=== PATIENT | male | born 1985 | race Hispanic/Latino ===

== ENCOUNTER 2019-02-08 14:51 | Inpatient (IN) | payer MEDICARE ==
[~2019-02-08] VITALS: Ht 177.8 cm; Wt 75.7 kg
[2019-02-08 15:32] LABS: BASOPHILS % (AUTO) 1.3 % (0.0-5.0); EOSINOPHILS % (AUTO) 11.6 % (0.0-8.0); HEMATOCRIT 28.4 % (42-54); LYMPHOCYTES % (AUTO) 15.2 % (21.0-51.0); MEAN CORPUSCULAR HEMOGLOBIN 30.9 pg (27.0-33.0); MEAN CORPUSCULAR HGB CONC 33.8 g/dL (32.0-36.0); MEAN CORPUSCULAR VOLUME 91.5 fL (79-99); MONOCYTES % (AUTO) 11.7 % (3.0-13.0); NEUTROPHILS % (AUTO) 60.2 % (40.0-77.0); PLATELET COUNT (AUTO) 93 K/uL (130-400); RED CELL DISTRIBUTION WIDTH 15.7 % (11.0-15.5); WHITE BLOOD COUNT (AUTO) 3.4 K/uL (4.8-10.8)
[2019-02-08 15:44] LABS: PARTIAL THROMBOPLASTIN TIME 35.3 SEC (26.3-35.5)
[2019-02-08 15:48] LABS: ALBUMIN 2.1 g/dL (3.5-5.0); BILIRUBIN,TOTAL 0.5 mg/dL (0.2-1.0); POTASSIUM 4.1 mmol/L (3.5-5.1); TOTAL PROTEIN, SERUM 6.4 g/dL (6.0-8.3)
[2019-02-08 15:52] LABS: PLATELET MORPHOLOGY COMMENT DECREASED
[2019-02-08 15:56] LABS: INR 1.09 (0.85-1.15); PROTHROMBIN TIME 11.4 SEC (9.6-11.6)
[2019-02-08] MEDS ORDERED: HYDRALAZINE HCL 20 MG/ML VIAL IV PRN (17:15)
[2019-02-08] MEDS ORDERED: ONDANSETRON HCL 4 MG/2 ML VIAL IV PRN (17:15)
[2019-02-08] MEDS ORDERED: ACETAMINOPHEN 325 MG TAB PO PRN ×2 (17:15)
[2019-02-08] MEDS ORDERED: LACTULOSE 20 GM/30 ML UDCUP PO PRN (17:15)
[2019-02-08] MEDS ORDERED: SODIUM CHLORIDE 0.9% 1000ML 2,000 ML IV ONE (18:49)
[2019-02-08 20:33] LABS: APPEARANCE,URINE Clear (CLEAR); BILIRUBIN,URINE Negative (NEGATIVE); COLOR,URINE Yellow (YELLOW); GLUCOSE, URINE (UA) Negative (NEGATIVE); KETONES,URINE Negative (NEGATIVE); LEUKOCYTE ESTERASE ,URINE Trace (NEGATIVE); NITRATE,URINE Negative (NEGATIVE); OCCULT BLOOD,URINE Nonhemolyzed Trace (NEGATIVE); PROTEIN,URINE 300 mg/dL (NEGATIVE)
[2019-02-08 20:41] LABS: AMPHET/METH SCREEN,URINE NEGATIVE (NEGATIVE); BARBITURATE SCREEN, URINE NEGATIVE (NEGATIVE); BENZODIAZEPINES SCREEN,URINE NEGATIVE (NEGATIVE); CANNABINOID SCREEN,URINE POSITIVE (NEGATIVE); COCAINE SCREEN,URINE NEGATIVE (NEGATIVE); OPIATE SCREEN,URINE NEGATIVE (NEGATIVE); PHENCYCLIDINE SCREEN,URINE NEGATIVE (NEGATIVE)
[2019-02-08] MEDS ORDERED: ACETAMINOPHEN 325 MG TAB ONE (20:43)
[2019-02-08] MEDS ORDERED: HEPARIN SODIUM 5000UNIT/ML 1ML VIAL ONE (20:45)
[2019-02-08 20:47] LABS: BACTERIA,URINE Rare /HPF (None Seen); RBC,URINE 0-1 /HPF (0-1); SQUAMOUS EPITHELIAL CELL,UR Rare /HPF (0-2)
[2019-02-08 20:47] LABS: HEMOGLOBIN A1C 5.8 % (4.0-6.0)
[2019-02-08] MEDS ORDERED: HEPARIN SODIUM 5000UNIT/ML 1ML VIAL SQ SCH (21:00)
--- NOTE | 2019-02-08 22:30 | NUR ---
ER ADMIT Admitted from Er,post dialysis treatment.Vital signs,weight taken. and baby went home,advised them children are not allowed to stay overnight as per policy.Security and Gas Check Pad Maker aware.
[2019-02-08] MEDS: MORPHINE SULFATE 2 MG/ML 1ML SYG IV PRN (23:36)
[2019-02-08 23:45] VITALS: BP 154/80
[2019-02-09 04:00] VITALS: BP 126/68
[2019-02-09] MEDS: MORPHINE SULFATE 2 MG/ML 1ML SYG IV PRN ×4 (05:02→20:00)
[2019-02-09 05:25] LABS: BASOPHILS % (AUTO) 1.5 % (0.0-5.0); EOSINOPHILS % (AUTO) 9.1 % (0.0-8.0); HEMATOCRIT 25.6 % (42-54); LYMPHOCYTES % (AUTO) 23.4 % (21.0-51.0); MEAN CORPUSCULAR HGB CONC 33.2 g/dL (32.0-36.0); MEAN CORPUSCULAR VOLUME 90.3 fL (79-99); MONOCYTES % (AUTO) 12.8 % (3.0-13.0); NEUTROPHILS % (AUTO) 53.2 % (40.0-77.0); PLATELET COUNT (AUTO) 90 K/uL (130-400); RED BLOOD CELL COUNT(AUTO) 2.83 MIL/uL (4.50-6.20); RED CELL DISTRIBUTION WIDTH 15.4 % (11.0-15.5); WHITE BLOOD COUNT (AUTO) 2.6 K/uL (4.8-10.8)
[2019-02-09 05:36] LABS: HEMOGLOBIN A1C 5.9 % (4.0-6.0)
[2019-02-09 06:06] LABS: ALBUMIN 1.9 g/dL (3.5-5.0); BILIRUBIN,DIRECT 0.1 mg/dL (0.0-0.3); BILIRUBIN,TOTAL 0.5 mg/dL (0.2-1.0); MAGNESIUM 1.8 mg/dL (1.80-2.40); PHOSPHORUS 5.4 mg/dL (2.5-4.9); THYROID STIMULATING HORMONE 1.51 uIU/mL (0.36-3.74); TOTAL PROTEIN, SERUM 5.7 g/dL (6.0-8.3)
[2019-02-09 06:22] LABS: EOSINOPHILS % (MANUAL) 12 % (1-6); LYMPHOCYTES % (MANUAL) 24 % (22-44); MAN.DIFF COMMENT-IMPRESSION MANUAL DIFFERENTIAL; MONOCYTES % (MANUAL) 8 % (2-9); PLATELET MORPHOLOGY COMMENT DECREASED; REACTIVE LYMPHOCYTES 2 % (0-0); SEGMENTED NEUTROPHILS % 54 % (40-70)
[2019-02-09 07:00] VITALS: BP 134/69
[2019-02-09] MEDS ORDERED: LEVE500T8 PO (07:48)
[2019-02-09] MEDS ORDERED: LACT10SO9 PO (07:48)
[2019-02-09] MEDS ORDERED: POTASSIUM CHLORIDE 10% ELIXIR 20 MEQ/15 ML UDCUP PO PRN (08:45)
[2019-02-09] MEDS ORDERED: LIDOCAINE HCL-MPF 1% 2ML VIAL IVP PRN (08:45)
[2019-02-09] MEDS ORDERED: MAGNESIUM 2GM PREMIX 50ML 50 ML IV PRN (08:45)
[2019-02-09] MEDS ORDERED: POTASSIUM CHLORIDE 10MEQ/100ML 100 ML IV PRN (08:45)
[2019-02-09] MEDS: LEVETIRACETAM 500 MG TABLET PO SCH (09:55)
[2019-02-09] MEDS: LACTULOSE 20 GM/30 ML UDCUP PO SCH (09:55)
[2019-02-09] MEDS: POTASSIUM CHLORIDE 20 MEQ ERTAB PO PRN (09:55)
[2019-02-09] MEDS: FOLIC ACID/VITAMIN B COMP W-C 1 MG CAP/TAB PO SCH (10:03)
[2019-02-09] MEDS: FAMOTIDINE/PF 20 MG/2 ML VIAL IV SCH (10:04)
[2019-02-09 11:00] VITALS: BP 143/87
[2019-02-09] MEDS ORDERED: 0.9% SODIUM CHLORIDE 1000 ML IV BAG IV PRN (13:15)
[2019-02-09] MEDS ORDERED: NITROGLYCERIN 0.4 MG SL TAB SL PRN (13:15)
[2019-02-09] MEDS ORDERED: HEPARIN SODIUM 5000UNIT/ML 1ML VIAL IJ PRN (13:15)
[2019-02-09] MEDS: SODIUM CHLORIDE 0.9% 1000ML 1,000 ML IV PRN (13:23)
--- NOTE | 2019-02-09 13:30 | NUR ---
DIALYSIS PATIENT S/P DIALYSIS TREATMENT BY SUSIE GUAJARDO. 2.5L REMOVED. PATIENT STABLE WITH VITAL SIGNS AT 136/96-88-18-98.6.
--- NOTE | 2019-02-09 14:33 | NUR ---
DCP CM met with pt discussed dc plans. Pt is independent prior to admission, lives alone. Pt refuses to answer personal questions at this time regarding home situtation and current dialysis center, pt states he doesn't feel well, asked CM to come back on a later time when he feels a little better. Pt agreeable for outpatient dialysis center placement, RAJINDER signed [place] [facility]. Obtained most info through medical records. Will reassess home situation once pt feels more stable. DC plan to home vs skilled nursing/SNF. CM to cont to follow up. Addendum: 02/09/19 at 1437 by FINA SMITH LVN CM Amended: Links added.
--- NOTE | 2019-02-09 14:55 | NUR ---
CONSULT DR. ROGER CONSULTED FOR LEFT AV FISTULA PER DR. ADAMES. DR. ROGER/ERIN MADE AWARE. NO NEW ORDERS AT THIS TIME.
[2019-02-09] MEDS: HEPARIN SODIUM 5000UNIT/ML 1ML VIAL IJ PRN (15:06)
[2019-02-09 16:00] VITALS: BP 150/93
[2019-02-09 20:00] VITALS: BP 159/73
--- NOTE | 2019-02-09 20:00 | NUR ---
ULTRASOUND US tech came to do talon upper arm vein mapping.
--- NOTE | 2019-02-09 23:07 | NUR ---
MORPHINE Pt keeps asking for pain medication,he states "So I could go to sleep".
[2019-02-10] VITALS (7 sets, daily range): BP systolic 132–168; BP diastolic 77–99
--- NOTE | 2019-02-10 00:01 | NUR ---
MED EFFECT Pt quietly resting,eyes closed.Respirations even and unlabored.
--- NOTE | 2019-02-10 00:01 | NUR ---
SHOWER Pt took a shower,then asked for Morphine,states his back hurts.
[2019-02-10] MEDS: MORPHINE SULFATE 2 MG/ML 1ML SYG IV PRN ×3 (00:30→09:48)
[2019-02-10 06:47] LABS: HEMATOCRIT 27.6 % (42-54); MEAN CORPUSCULAR HEMOGLOBIN 31.3 pg (27.0-33.0); MEAN CORPUSCULAR HGB CONC 34.5 g/dL (32.0-36.0); MEAN CORPUSCULAR VOLUME 90.7 fL (79-99); NUCLEATED RED BLOOD CELLS 0.1 % (0.0-0.19); PLATELET COUNT (AUTO) 99 K/uL (130-400); RED BLOOD CELL COUNT(AUTO) 3.04 MIL/uL (4.50-6.20); RED CELL DISTRIBUTION WIDTH 15.5 % (11.0-15.5); WHITE BLOOD COUNT (AUTO) 3.3 K/uL (4.8-10.8)
[2019-02-10 07:00] LABS: CREATININE 4.5 mg/dL (0.5-1.5); POTASSIUM 3.5 mmol/L (3.5-5.1)
[2019-02-10 08:11] LABS: HEPATITIS A ANTIBODY IGM Negative (Negative); HEPATITIS B CORE IGM Negative (Negative); HEPATITIS Bs ANTIGEN SCREEN P Negative (Negative)
--- NOTE | 2019-02-10 09:25 | NUR ---
LEFT FOOT NOTICED SKIN ABRASION TO TOP OF LEFT FOOT, PT STATED HE HAS HAD THAT FOR A WHILE, SINCE WAS IN [employer] BUT DOESN'T BOTHER HIM AT THIS POINT, NOTICED SAME AREA ON RIGHT FOOD HAD ABRASION WELL BUT IS WELL HEALED; PT STATED IT WAS FROM SOME SHOES HE WORE
[2019-02-10] MEDS: FOLIC ACID/VITAMIN B COMP W-C 1 MG CAP/TAB PO SCH (09:40)
[2019-02-10] MEDS: LACTULOSE 20 GM/30 ML UDCUP PO SCH (09:40)
[2019-02-10] MEDS: LEVETIRACETAM 500 MG TABLET PO SCH (09:40)
[2019-02-10] MEDS: FAMOTIDINE/PF 20 MG/2 ML VIAL IV SCH (09:41)
[2019-02-10] MEDS: POTASSIUM CHLORIDE 20 MEQ ERTAB PO PRN ×2 (09:41→12:14)
--- NOTE | 2019-02-10 10:56 | NUR ---
CM Note: [facility] Roc Matos pending approval and chair time Spoke to Luz santoro/[facility] Roc Matos, pt pending approval and chair time at this time. Preliminary chair time TTS 4th shift possibly 5-6:30pm. Primary nurse aware. CM to cont to follow up.
[2019-02-10] MEDS ORDERED: HYDROCODONE/ACETAMINOPHEN 5/325 MG TAB PO PRN (13:00)
--- NOTE | 2019-02-10 14:09 | NUR ---
ACTIVITY PT AMBULATING HALLWAY, STEADY AND BEARING OWN WEIGHT, TOLERATING WELL
--- NOTE | 2019-02-10 15:20 | NUR ---
DIALYSIS SPOKE TO SUSIE SY, VIA TELEPHONE, WILL BE BY IN AM TO DO DIALYSIS ON PATIENT
--- NOTE | 2019-02-10 16:37 | NUR ---
ACTIVITY PT AMBULATED OUTSIDE BUILDING, ALREADY EXPLAINED HE'S UNABLE TO GO WITHOUT STAFF PRESENT, WILL CONTACT DOCTOR AND INFORM OF PT'S WANDERING OUTSIDE Addendum: 02/10/19 at 1641 by JAS GONZALEZ RN SECURITY CONTACTED AND RETURNED WITH PATIENT BACK TO ROOM
--- NOTE | 2019-02-10 16:49 | NUR ---
AWARENESS PT MADE AWARE OF TELE-PACK USE, THE NEED TO STAY IN THE BUILDING, HAVING TO SIGN REFUSAL FORM IF LEAVES AGAIN; PT VERBALIZED THAT HE WILL NO LONGER GO OUTSIDE AND WILL ONLY AMBULATE IN BUILDING Addendum: 02/10/19 at 1650 by JAS GONZALEZ RN STATED: I WILL NOT LEAVE AGAIN
[2019-02-10] MEDS: CLINDAMYCIN 900 MG/D5% WATER 50 ML IV SCH (21:57)
[2019-02-11] VITALS: BP 150/88
[2019-02-11] MEDS: CLINDAMYCIN 900 MG/D5% WATER 50 ML IV SCH ×4 (03:42→22:30)
[2019-02-11 03:59] VITALS: BP 116/64
[2019-02-11 06:33] LABS: HEMATOCRIT 29.3 % (42-54); MEAN CORPUSCULAR HEMOGLOBIN 30.8 pg (27.0-33.0); MEAN CORPUSCULAR HGB CONC 33.9 g/dL (32.0-36.0); MEAN CORPUSCULAR VOLUME 90.8 fL (79-99); PLATELET COUNT (AUTO) 106 K/uL (130-400); RED BLOOD CELL COUNT(AUTO) 3.23 MIL/uL (4.50-6.20); RED CELL DISTRIBUTION WIDTH 15.9 % (11.0-15.5); WHITE BLOOD COUNT (AUTO) 2.9 K/uL (4.8-10.8)
[2019-02-11 06:38] LABS: CREATININE 6.2 mg/dL (0.5-1.5); POTASSIUM 3.7 mmol/L (3.5-5.1)
[2019-02-11 06:57] LABS: INR 1.1 (0.85-1.15); PARTIAL THROMBOPLASTIN TIME 34.5 SEC (26.3-35.5); PROTHROMBIN TIME 11.5 SEC (9.6-11.6)
[2019-02-11] MEDS: MORPHINE SULFATE 2 MG/ML 1ML SYG IV PRN ×3 (06:57→22:31)
[2019-02-11 07:30] VITALS: BP 134/89
[2019-02-11 08:17] LABS: BASOPHILS % (MANUAL) 4 % (0-2); EOSINOPHILS % (MANUAL) 9 % (1-6); LYMPHOCYTES % (MANUAL) 27 % (22-44); MAN.DIFF COMMENT-IMPRESSION MANUAL DIFFERENTIAL; MONOCYTES % (MANUAL) 5 % (2-9); PLATELET MORPHOLOGY COMMENT SLIGHTLY DECREASED; SEGMENTED NEUTROPHILS % 55 % (40-70)
[2019-02-11] MEDS: FOLIC ACID/VITAMIN B COMP W-C 1 MG CAP/TAB PO SCH (09:00)
[2019-02-11] MEDS: LACTULOSE 20 GM/30 ML UDCUP PO SCH (09:00)
[2019-02-11] MEDS: FAMOTIDINE/PF 20 MG/2 ML VIAL IV SCH (10:38)
[2019-02-11] MEDS: LEVETIRACETAM 500 MG TABLET PO SCH (10:41)
[2019-02-11 11:00] VITALS: BP 158/84
--- NOTE | 2019-02-11 11:00 | NUR ---
Received call from Cayden from [address] Yan postponed the AV fistula procedure for today and did not indicate any future time and to call Luz if we had any other questions. Primary care nurse Cheri reese.
--- NOTE | 2019-02-11 11:45 | NUR ---
DR. BANUELOS NOTIFIED OF RIGHT AV FISTULA PROCEDURE POSTPONED BY DR. ROGER. NO NEW ORDERS AT THIS TIME.
--- NOTE | 2019-02-11 12:30 | NUR ---
NOTIFIED DR. ADAMES OF PROCEDURE POSTPONED BY DR. ROGER FOR RIGHT AV FISTULA. PER DR. ADAMES, CONTINUE WITH DIALYSIS TODAY. WILL ROUND LATER THIS AFTERNOON.
--- NOTE | 2019-02-11 14:11 | NUR ---
Dialysis diet education: Printed handouts provided and reviewed on Dialysis diet. Pt with multiple questions, all questions answered by PEYMAN. Suggested food list provided. Pt states he is assigned to [facility]. Pt encouraged to continue asking nutrition questions to Renal dietitian to further his dialysis diet knowledge. Pt verbalize understanding. Addendum: 02/11/19 at [address] Amended: Links added.
--- NOTE | 2019-02-11 14:18 | NUR ---
Nutrition intervention: Nutrition notification for renal dialysis patient. Pt admitted for ESRD requiring HD. Pt states he is fairly new to HD questioning food items on tray and requesting orange juice. Pt states he has been recommended to increase potassium intake d/t epilepsy and potassium levels dropping. PEYMAN spoke to pt's nurse and recommend orange juice, as per pt's preference, when potassium levels are low. Pt is not a diabetic. LBM 02/11. BMI 24.2-WNL. recommendations: Diet education provided by PEYMAN. Continue current diet therapy. Consult RD as nutrition concerns arise. Addendum: 02/11/19 at [address] Amended: Links added.
--- NOTE | 2019-02-11 14:43 | NUR ---
CALLED DR. ROGER FOR ORDERS TO RESCHEDULE RIGHT AV FISTULA PROCEDURE. PER DR. ROGER WILL CALL THE NURSE LATER TO RESCHEDULE PROCEDURE.
--- NOTE | 2019-02-11 15:22 | NUR ---
PATIENT WAS ON DIALYSIS. WILL ATTEMPT TO INITIATE PHYSICAL THERAPY TOMORROW. Addendum: 02/11/19 at 1523 by HERBERT GARCIA, PT PT Amended: Links added.
[2019-02-11 16:00] VITALS: BP 144/76
[2019-02-11] MEDS: SODIUM CHLORIDE 0.9% 1000ML 1,000 ML IV PRN (17:19)
[2019-02-11] MEDS: HEPARIN SODIUM 5000UNIT/ML 1ML VIAL IJ PRN (17:20)
--- NOTE | 2019-02-11 17:50 | NUR ---
DIALYSIS PATIENT S/P DIALYSIS TREATMENT BY SUSIE SY. 2.5L REMOVED IN 3 HOURS. DRESSING CHANGED. PATIENT STABLE WITH V/S AT 98.5 - 93 - 16 - 146/86.
[2019-02-11] MEDS: POTASSIUM CHLORIDE 20 MEQ ERTAB PO PRN (18:07)
[2019-02-11 19:00] VITALS: BP 134/66
[2019-02-12] VITALS (7 sets, daily range): BP systolic 15–133; BP diastolic 63–93
[2019-02-12] MEDS: CLINDAMYCIN 900 MG/D5% WATER 50 ML IV SCH ×4 (04:34→21:51)
[2019-02-12] MEDS: MORPHINE SULFATE 2 MG/ML 1ML SYG IV PRN ×3 (06:35→23:13)
[2019-02-12 06:39] LABS: HEMATOCRIT 32.9 % (42-54); MEAN CORPUSCULAR HEMOGLOBIN 30.6 pg (27.0-33.0); MEAN CORPUSCULAR HGB CONC 33.3 g/dL (32.0-36.0); MEAN CORPUSCULAR VOLUME 91.8 fL (79-99); NUCLEATED RED BLOOD CELLS 0.1 % (0.0-0.19); PLATELET COUNT (AUTO) 121 K/uL (130-400); RED BLOOD CELL COUNT(AUTO) 3.59 MIL/uL (4.50-6.20); RED CELL DISTRIBUTION WIDTH 15.9 % (11.0-15.5); WHITE BLOOD COUNT (AUTO) 4.2 K/uL (4.8-10.8)
[2019-02-12 06:55] LABS: CREATININE 5.9 mg/dL (0.5-1.5); POTASSIUM 4.2 mmol/L (3.5-5.1)
[2019-02-12] MEDS: LEVETIRACETAM 500 MG TABLET PO SCH (08:37)
[2019-02-12] MEDS: FOLIC ACID/VITAMIN B COMP W-C 1 MG CAP/TAB PO SCH (08:37)
[2019-02-12] MEDS: FAMOTIDINE/PF 20 MG/2 ML VIAL IV SCH (08:37)
[2019-02-12] MEDS: LACTULOSE 20 GM/30 ML UDCUP PO SCH (08:37)
[2019-02-13 03:43] VITALS: BP 122/74
[2019-02-13] MEDS: CLINDAMYCIN 900 MG/D5% WATER 50 ML IV SCH ×2 (05:47→09:00)
[2019-02-13 05:59] LABS: BASOPHILS % (AUTO) 1.3 % (0.0-5.0); EOSINOPHILS % (AUTO) 11.3 % (0.0-8.0); HEMATOCRIT 31.7 % (42-54); LYMPHOCYTES % (AUTO) 16.7 % (21.0-51.0); MEAN CORPUSCULAR HEMOGLOBIN 31.3 pg (27.0-33.0); MEAN CORPUSCULAR HGB CONC 35.1 g/dL (32.0-36.0); MEAN CORPUSCULAR VOLUME 89.3 fL (79-99); MONOCYTES % (AUTO) 10.8 % (3.0-13.0); NEUTROPHILS % (AUTO) 59.9 % (40.0-77.0); PLATELET COUNT (AUTO) 126 K/uL (130-400); RED BLOOD CELL COUNT(AUTO) 3.56 MIL/uL (4.50-6.20); RED CELL DISTRIBUTION WIDTH 14.9 % (11.0-15.5); WHITE BLOOD COUNT (AUTO) 4.3 K/uL (4.8-10.8)
[2019-02-13 06:10] LABS: CREATININE 7.5 mg/dL (0.5-1.5)
[2019-02-13 08:00] VITALS: BP 111/80
[2019-02-13] MEDS: FAMOTIDINE/PF 20 MG/2 ML VIAL IV SCH (08:11)
[2019-02-13] MEDS: LACTULOSE 20 GM/30 ML UDCUP PO SCH (08:11)
[2019-02-13] MEDS: LEVETIRACETAM 500 MG TABLET PO SCH (08:11)
[2019-02-13] MEDS: MORPHINE SULFATE 2 MG/ML 1ML SYG IV PRN (08:12)
[2019-02-13] MEDS: FOLIC ACID/VITAMIN B COMP W-C 1 MG CAP/TAB PO SCH (08:13)
[2019-02-13 11:30] VITALS: BP 110/64
--- NOTE | 2019-02-13 11:50 | NUR ---
Renal [place]: Call placed to [facility] this am to confirm status of chair time. HIV lab results, 3rd HD treatment and pending Hep B surface antigen labs faxed this morning. Per Luz santoro [facility] faxed information received, pt has been accepted and first appointment will be February 16 @ 2pm. Regular chair times will be TTS @ 6pm. Primary nurse updated.
--- NOTE | 2019-02-13 14:54 | NUR ---
DCP Pt finished w inpt HD tx at this time. CM in to provide him w [facility] outpt chair appointment. PT verbalizes understanding. Also provided pt w resource information packet.
--- NOTE | 2019-02-13 15:00 | NUR ---
DISCHARGE PATIENT GIVEN DISCHARGE INSTRUCTIONS VIA TEACH BACK. 20G PIV TO RFA DISCONTINUED, TIP INTACT. TELE KAMILA REMOVED AND RETURNED TO TELEMETRY. NO RX GIVEN. PATIENT TO FOLLOW UP WITH DR. ROGER ON 03/01/19 FOR RIGHT AV FISTULA PLACEMENT. PATIENT TO START DIALYSIS OUT PATIENT TREATMENTS AT [facility] IN [place] ON Friday02/16/19 AT 1400. SEMICONDUCTOR EQUIPMENT TECHNICIAN PRESENT TO ADMINISTER PATIENT WITH INFORMATION REGARDING ASSISTANCE AND LIST FOR PCP. PATIENT STABLE AT THIS TIME. PATIENT WALKED DOWN TO [facility] ACCOMPANIED BY SPOUSE AND LIZY OLIVER.
[2019-02-13] MEDS: SODIUM CHLORIDE 0.9% 1000ML 1,000 ML IV PRN (15:11)
== END 2019-02-13 15:00 | disposition home or self-care (01) | DRG 640 ==
LOC: EDH 14:51 → EDHIP 17:09 → 3BH 23:02
PROVIDERS: ADMIT Internal Medicine; ATTEND Internal Medicine
PROC: 5A1D70Z Performance of Urinary Filtration, Intermittent, Less than 6 Hours Per Day (ICD-10-PCS; principal; 2019-02-08)
PROC: 5A1D70Z Performance of Urinary Filtration, Intermittent, Less than 6 Hours Per Day (ICD-10-PCS; 2019-02-08)
PROC: 5A1D70Z Performance of Urinary Filtration, Intermittent, Less than 6 Hours Per Day (ICD-10-PCS; 2019-02-09)
PROC: 5A1D70Z Performance of Urinary Filtration, Intermittent, Less than 6 Hours Per Day (ICD-10-PCS; 2019-02-11)
PROC: 5A1D70Z Performance of Urinary Filtration, Intermittent, Less than 6 Hours Per Day (ICD-10-PCS; 2019-02-13)
DX: E87.70 Fluid overload, unspecified (principal); N18.6 End stage renal disease; I12.0 Hypertensive chronic kidney disease with stage 5 chronic kidney disease or end stage renal disease; E87.2 Acidosis; E87.6 Hypokalemia; D64.9 Anemia, unspecified; M19.90 Unspecified osteoarthritis, unspecified site; D69.6 Thrombocytopenia, unspecified; K70.30 Alcoholic cirrhosis of liver without ascites; F12.90 Cannabis use, unspecified, uncomplicated; Z99.2 Dependence on renal dialysis; Z59.0 Homelessness; Z91.19 Patient's noncompliance with other medical treatment and regimen
CPT/HCPCS: 36415; 71045; 80048; 80053; 80061; 80074; 80076; 80305; 81001; 82550; 83036; 83735; 84100; 84443; 84484; 85025; 85027; 85610; 85730; 86701; 86706; 86850; 86900; 86901; 86922; 87390; 90935; 93005; 93970; 99291; G0378; G0480; J0360; J1644; J3490; J7030

== ENCOUNTER 2019-03-15 08:28 | Emergency (ER) | payer MEDICARE ==
[~2019-03-15 08:28] MED LIST: FOLI1TAB15 PO; LACT10SO9 PO; LEVE500T8 PO; THIA100T91 PO
[2019-03-15 09:29] LABS: POTASSIUM 4.3 mmol/L (3.5-5.1)
[2019-03-15 09:30] LABS: APPEARANCE,URINE Clear (CLEAR); BILIRUBIN,URINE Negative (NEGATIVE); COLOR,URINE Yellow (YELLOW); GLUCOSE, URINE (UA) TRACE mg/dL (NEGATIVE); KETONES,URINE Negative (NEGATIVE); LEUKOCYTE ESTERASE ,URINE Trace (NEGATIVE); NITRATE,URINE Negative (NEGATIVE); OCCULT BLOOD,URINE Trace (NEGATIVE); PROTEIN,URINE 300 mg/dL (NEGATIVE)
[2019-03-15 09:30] LABS: ALBUMIN 2.1 g/dL (3.5-5.0); BILIRUBIN,TOTAL 0.5 mg/dL (0.2-1.0); CREATININE 12.9 mg/dL (0.5-1.5); PHOSPHORUS 6.6 mg/dL (2.5-4.9); TOTAL PROTEIN, SERUM 6.9 g/dL (6.0-8.3)
[2019-03-15 09:52] LABS: BACTERIA,URINE Rare /HPF (None Seen); RBC,URINE 0-1 /HPF (0-1); SQUAMOUS EPITHELIAL CELL,UR Rare /HPF (0-2)
[2019-03-15] MEDS ORDERED: LACTULOSE 20 GM/30 ML UDCUP ONE (10:24)
[2019-03-15] MEDS ORDERED: IBUPROFEN 600 MG TABLET ONE (10:24)
[2019-03-15 10:28] LABS: AMPHET/METH SCREEN,URINE NEGATIVE (NEGATIVE); BARBITURATE SCREEN, URINE NEGATIVE (NEGATIVE); BENZODIAZEPINES SCREEN,URINE POSITIVE (NEGATIVE); CANNABINOID SCREEN,URINE POSITIVE (NEGATIVE); COCAINE SCREEN,URINE NEGATIVE (NEGATIVE); OPIATE SCREEN,URINE NEGATIVE (NEGATIVE); PHENCYCLIDINE SCREEN,URINE NEGATIVE (NEGATIVE)
== END 2019-03-15 11:26 | disposition home or self-care (01) ==
LOC: EDH 08:28
DX: N18.6 End stage renal disease (principal); G89.29 Other chronic pain; K70.30 Alcoholic cirrhosis of liver without ascites; E72.20 Disorder of urea cycle metabolism, unspecified; Z99.2 Dependence on renal dialysis; Z88.0 Allergy status to penicillin
CPT/HCPCS: 36415; 80053; 80305; 81001; 82140; 84100

== ENCOUNTER 2019-03-17 06:32 | Inpatient (IN) | payer MEDICARE ==
[~2019-03-17] VITALS: Ht 177.8 cm; Wt 81.6 kg
[2019-03-17 06:57] LABS: BASOPHILS % (AUTO) 1.2 % (0.0-5.0); EOSINOPHILS % (AUTO) 7.3 % (0.0-8.0); HEMATOCRIT 27.8 % (42-54); LYMPHOCYTES % (AUTO) 14.6 % (21.0-51.0); MEAN CORPUSCULAR HEMOGLOBIN 30.6 pg (27.0-33.0); MEAN CORPUSCULAR HGB CONC 34.7 g/dL (32.0-36.0); MEAN CORPUSCULAR VOLUME 88.4 fL (79-99); NEUTROPHILS % (AUTO) 64.9 % (40.0-77.0); PLATELET COUNT (AUTO) 83 K/uL (130-400); RED BLOOD CELL COUNT(AUTO) 3.15 MIL/uL (4.50-6.20); RED CELL DISTRIBUTION WIDTH 13.9 % (11.0-15.5)
[2019-03-17 07:10] LABS: ALBUMIN 2.3 g/dL (3.5-5.0); BILIRUBIN,TOTAL 0.7 mg/dL (0.2-1.0); POTASSIUM 3.9 mmol/L (3.5-5.1); TOTAL PROTEIN, SERUM 7.2 g/dL (6.0-8.3)
[2019-03-17 07:15] LABS: CREATININE 13.3 mg/dL (0.5-1.5)
[2019-03-17 07:23] LABS: PLATELET MORPHOLOGY COMMENT DECREASED
[2019-03-17] MEDS ORDERED: ACETAMINOPHEN EXTRA STRENGTH 500 MG TABLET ONE (07:59)
[2019-03-17] MEDS ORDERED: ACETAMINOPHEN 325 MG TAB PO PRN ×2 (11:15)
[2019-03-17] MEDS ORDERED: ONDANSETRON HCL 4 MG/2 ML VIAL IV PRN (11:15)
[2019-03-17] MEDS ORDERED: HYDRALAZINE HCL 20 MG/ML VIAL IV PRN (11:15)
[2019-03-17] MEDS: RIFAXIMIN 550 MG TABLET PO SCH ×2 (11:30→23:42)
[2019-03-17 14:05] VITALS: BP 135/82
--- NOTE | 2019-03-17 14:40 | NUR ---
DCP CM met with pt discussed dc plans. Pt is independent prior to admission, lives at home with a friend, zay lives close by. Goes to [address] for [address]. Denies any other equipments/services. Pt feels safe to go back home, drives self, arranges own needs, friend and yoannae able to assist with transportation as necessary. DC plan to home once stable. CM to cont to follow up. Addendum: 03/18/19 at 1443 by FINA SMITH LVN CM Amended: Links added.
[2019-03-17] MEDS ORDERED: MORPHINE SULFATE 2 MG/ML 1ML SYG IM PRN (15:15)
--- NOTE | 2019-03-17 15:34 | NUR ---
paged dr. wilson at this time to get an order for dialysis. will wait for his call back.
[2019-03-17] MEDS: LACTULOSE 20 GM/30 ML UDCUP PO SCH ×2 (18:11→23:42)
[2019-03-17] MEDS: MORPHINE SULFATE 2 MG/ML 1ML SYG IV PRN ×2 (18:37→23:53)
[2019-03-17] MEDS: PHARMACY COMMUNICATION MISC SCH (19:00)
[2019-03-17] MEDS ORDERED: HEPARIN SODIUM 5000UNIT/ML 1ML VIAL ONE (19:05)
[2019-03-17 20:00] VITALS: BP 125/75
[2019-03-17] MEDS ORDERED: LACTULOSE 20 GM/30 ML UDCUP PO SCH (21:00)
--- NOTE | 2019-03-17 21:58 | NUR ---
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
[2019-03-18] VITALS (9 sets, daily range): BP systolic 112–154; BP diastolic 65–89
[2019-03-18] MEDS: PHARMACY COMMUNICATION MISC SCH (03:00)
[2019-03-18] MEDS: MORPHINE SULFATE 2 MG/ML 1ML SYG IV PRN (04:23)
[2019-03-18 05:27] LABS: HEMATOCRIT 29.6 % (42-54); MEAN CORPUSCULAR HEMOGLOBIN 30.7 pg (27.0-33.0); MEAN CORPUSCULAR HGB CONC 35.1 g/dL (32.0-36.0); MEAN CORPUSCULAR VOLUME 87.5 fL (79-99); NUCLEATED RED BLOOD CELLS 0.1 % (0.0-0.19); PLATELET COUNT (AUTO) 101 K/uL (130-400); RED BLOOD CELL COUNT(AUTO) 3.38 MIL/uL (4.50-6.20); WHITE BLOOD COUNT (AUTO) 5.8 K/uL (4.8-10.8)
[2019-03-18 05:44] LABS: PHOSPHORUS 7.8 mg/dL (2.5-4.9); POTASSIUM 3.9 mmol/L (3.5-5.1); THYROID STIMULATING HORMONE 1.66 uIU/mL (0.36-3.74)
[2019-03-18 05:51] LABS: CREATININE 9.5 mg/dL (0.5-1.5)
[2019-03-18 06:10] LABS: % IRON SATURATION 29.5 % (30-44)
--- NOTE | 2019-03-18 08:17 | NUR ---
dr monreal is at the bedside and explained the poc to the patient. he ordered coag studies and ammonia level for today and tomorrow.
[2019-03-18] MEDS: LACTULOSE 20 GM/30 ML UDCUP PO SCH ×3 (09:00→21:00)
[2019-03-18] MEDS ORDERED: LACTULOSE 20 GM/30 ML UDCUP PO SCH ×2 (10:00→21:00)
[2019-03-18 10:23] LABS: INR 1.18 (0.85-1.15); PROTHROMBIN TIME 12.4 SEC (9.6-11.6)
[2019-03-18] MEDS ORDERED: HEPARIN SODIUM 5000UNIT/ML 1ML VIAL ONE (11:44)
[2019-03-18] MEDS: FAMOTIDINE/PF 20 MG/2 ML VIAL IV SCH (12:04)
[2019-03-18] MEDS: FOLIC ACID/VITAMIN B COMP W-C 1 MG CAP/TAB PO SCH (12:04)
[2019-03-18] MEDS: RIFAXIMIN 550 MG TABLET PO SCH ×2 (12:04→22:12)
[2019-03-18] MEDS ORDERED: HYDROCODONE/ACETAMINOPHEN 7.5/325 MG TAB PO PRN (17:00)
[2019-03-18] MEDS: SEVELAMER HCL 800 MG TABLET PO SCH (17:00)
[2019-03-18] MEDS ORDERED: HYDROCODONE/ACETAMINOPHEN 5/325 MG TAB PO PRN (17:15)
[2019-03-18] MEDS ORDERED: LEVETIRACETAM 500 MG TABLET PO ONE (23:22)
[2019-03-18] MEDS ORDERED: CHLORDIAZEPOXIDE HCL 25 MG CAP ONE (23:57)
[2019-03-19] VITALS (16 sets, daily range): BP systolic 111–141; BP diastolic 60–94
[2019-03-19] MEDS ORDERED: SIMETHICONE 80 MG TAB.CHEW PO PRN (01:15)
[2019-03-19] MEDS ORDERED: MORPHINE SULFATE 2 MG/ML 1ML SYG IVP ONE (03:15)
[2019-03-19] MEDS ORDERED: MORPHINE SULFATE 2 MG/ML 1ML SYG ONE (03:16)
[2019-03-19 05:51] LABS: CREATININE 7.8 mg/dL (0.5-1.5); HEMATOCRIT 32.4 % (42-54); MEAN CORPUSCULAR HEMOGLOBIN 30.5 pg (27.0-33.0); MEAN CORPUSCULAR HGB CONC 34.4 g/dL (32.0-36.0); MEAN CORPUSCULAR VOLUME 88.7 fL (79-99); PLATELET COUNT (AUTO) 115 K/uL (130-400); POTASSIUM 3.4 mmol/L (3.5-5.1); RED BLOOD CELL COUNT(AUTO) 3.66 MIL/uL (4.50-6.20); RED CELL DISTRIBUTION WIDTH 14.1 % (11.0-15.5); WHITE BLOOD COUNT (AUTO) 10.5 K/uL (4.8-10.8)
[2019-03-19 07:48] LABS: EOSINOPHILS % (MANUAL) 3 % (1-6); LYMPHOCYTES % (MANUAL) 6 % (22-44); MONOCYTES % (MANUAL) 21 % (2-9); SEGMENTED NEUTROPHILS % 70 % (40-70)
[2019-03-19 07:49] LABS: MAN.DIFF COMMENT-IMPRESSION MANUAL DIFFERENTIAL; PLATELET MORPHOLOGY COMMENT SLIGHTLY DECREASED
[2019-03-19] MEDS: LACTULOSE 20 GM/30 ML UDCUP PO SCH ×2 (08:53→12:43)
[2019-03-19] MEDS: RIFAXIMIN 550 MG TABLET PO SCH (08:54)
[2019-03-19] MEDS: SEVELAMER HCL 800 MG TABLET PO SCH ×3 (08:54→16:52)
[2019-03-19] MEDS: FOLIC ACID/VITAMIN B COMP W-C 1 MG CAP/TAB PO SCH (08:55)
[2019-03-19] MEDS: FAMOTIDINE/PF 20 MG/2 ML VIAL IV SCH (08:55)
[2019-03-19] MEDS ORDERED: THIAMINE HCL 100 MG TABLET PO SCH (09:00)
[2019-03-19] MEDS ORDERED: FOLIC ACID 1 MG TABLET PO SCH (09:00)
[2019-03-19] MEDS ORDERED: LEVETIRACETAM 500 MG TABLET PO SCH (09:00)
[2019-03-19] MEDS: CLINDAMYCIN 900 MG/D5% WATER 50 ML IV SCH ×2 (11:00→12:30)
[2019-03-19] MEDS ORDERED: SODIUM CHLORIDE 0.9% 1000ML 1,000 ML IV ONE (11:58)
--- NOTE | 2019-03-19 12:05 | NUR ---
PATIENT TRANSFERRED TO PROCEDURE. AWAKE AND ALERT, VOICES NO COMPLAINTS.
[2019-03-19] MEDS ORDERED: PROPOFOL 10 MG/ML 20ML VIAL IV ONE (12:27)
[2019-03-19] MEDS ORDERED: LIDOCAINE HCL MPF 1% 5ML VIAL ONE (12:27)
[2019-03-19] MEDS ORDERED: MIDAZOLAM HCL 1 MG/ML 2ML VIAL ONE (12:27)
[2019-03-19] MEDS ORDERED: ROCURONIUM 10MG/1ML SYR 10 MG/ML ML ONE (12:28)
[2019-03-19] MEDS ORDERED: FENTANYL CITRATE PF 50 MCG/1 ML 2ML VIAL ONE ×2 (12:28)
[2019-03-19] MEDS ORDERED: VASOPRESSIN 20 UNITS/ML 1ML VIAL ONE (12:31)
[2019-03-19] MEDS ORDERED: BACITRACIN 50,000 UNIT VIAL ONE (12:39)
[2019-03-19] MEDS ORDERED: DEXAMETHASONE SOD PHOSPHATE 4 MG/ML 1ML VIAL ONE (12:40)
[2019-03-19] MEDS ORDERED: ONDANSETRON HCL 4 MG/2 ML VIAL ONE (12:40)
[2019-03-19] MEDS ORDERED: NEOSTIGMINE 5MG/5ML SYR IV ONE (13:28)
[2019-03-19] MEDS ORDERED: GLYCOPYRROLATE 1 MG/5 ML SYRINGE ONE (13:28)
[2019-03-19] MEDS ORDERED: TRAMADOL HCL 50 MG TABLET PO PRN ×2 (13:30)
--- NOTE | 2019-03-19 18:30 | NUR ---
DISCHARGE INSTRUCTIONS GIVEN,,PATIENT AWAKE AND ALERT. ALL QUESTIONS ANSWERED. INSTRUCTED ON KEEPING APPTS. SCHEDULED . INSTRUCTED ON LEFT AV FISTULA THAT WAS PLACED TODAY. INSTRUCTED TO FOLLOW UP WITH DR. RASHEED AND DR. ADAMES. INSTRUCTED TO GO TO US [facility]. AT 6 PM. IV DISCONTINUED WITH INNER CANNULA INTACT.
[2019-03-19] MEDS ORDERED: EPOETIN ALFA 10,000 UNIT/ML VIAL SQ SCH (21:00)
== END 2019-03-19 19:00 | disposition home or self-care (01) | DRG 673 ==
LOC: EDH 06:32 → EDHIP 11:02 → 3BH 14:05
PROVIDERS: ADMIT Internal Medicine; ATTEND Internal Medicine
PROC: 5A1D70Z Performance of Urinary Filtration, Intermittent, Less than 6 Hours Per Day (ICD-10-PCS; 2019-03-17)
PROC: 5A1D70Z Performance of Urinary Filtration, Intermittent, Less than 6 Hours Per Day (ICD-10-PCS; 2019-03-18)
PROC: 031C0ZF Bypass Left Radial Artery to Lower Arm Vein, Open Approach (ICD-10-PCS; principal; 2019-03-19 12:27)
DX: N18.6 End stage renal disease (principal); G93.41 Metabolic encephalopathy; E87.2 Acidosis; E87.70 Fluid overload, unspecified; K72.90 Hepatic failure, unspecified without coma; D64.9 Anemia, unspecified; D69.6 Thrombocytopenia, unspecified; G40.909 Epilepsy, unspecified, not intractable, without status epilepticus; K70.31 Alcoholic cirrhosis of liver with ascites; Z76.5 Malingerer [conscious simulation]; Z91.15 Patient's noncompliance with renal dialysis; Z91.19 Patient's noncompliance with other medical treatment and regimen; Z99.2 Dependence on renal dialysis; Z88.0 Allergy status to penicillin; Z91.013 Allergy to seafood; Z84.1 Family history of disorders of kidney and ureter
CPT/HCPCS: 36415; 80048; 80053; 82140; 82728; 83540; 83550; 84100; 84443; 85025; 85027; 85610; 86850; 86900; 86901; 90935; G0378; J0885; J1100; J1644; J2250; J2405; J2704; J2710; J3010; J3490; J7030; Q0161

== ENCOUNTER 2019-04-15 13:58 | Observation (INO) | payer MEDICARE ==
[~2019-04-15 13:58] MED LIST changes: +LIDOP TP
[2019-04-15 14:52] LABS: ALBUMIN 2.4 g/dL (3.5-5.0); BILIRUBIN,TOTAL 0.6 mg/dL (0.2-1.0); POTASSIUM 3.4 mmol/L (3.5-5.1); TOTAL PROTEIN, SERUM 6.8 g/dL (6.0-8.3)
[2019-04-15 14:57] LABS: BASOPHILS % (AUTO) 2.2 % (0.0-5.0); EOSINOPHILS % (AUTO) 6.9 % (0.0-8.0); HEMATOCRIT 24.8 % (42-54); LYMPHOCYTES % (AUTO) 18.3 % (21.0-51.0); MEAN CORPUSCULAR HEMOGLOBIN 30.7 pg (27.0-33.0); MEAN CORPUSCULAR HGB CONC 34.4 g/dL (32.0-36.0); MEAN CORPUSCULAR VOLUME 89.3 fL (79-99); MONOCYTES % (AUTO) 12.2 % (3.0-13.0); NEUTROPHILS % (AUTO) 60.4 % (40.0-77.0); PLATELET COUNT (AUTO) 92 K/uL (130-400); RED BLOOD CELL COUNT(AUTO) 2.78 MIL/uL (4.50-6.20); RED CELL DISTRIBUTION WIDTH 15.3 % (11.0-15.5); WHITE BLOOD COUNT (AUTO) 2.9 K/uL (4.8-10.8)
[2019-04-15] MEDS ORDERED: LACTULOSE 20 GM/30 ML UDCUP ONE ×3 (15:21→22:15)
[2019-04-15 16:01] LABS: EOSINOPHILS % (MANUAL) 13 % (1-6); LYMPHOCYTES % (MANUAL) 21 % (22-44); MONOCYTES % (MANUAL) 1 % (2-9); SEGMENTED NEUTROPHILS % 65 % (40-70)
[2019-04-15 16:02] LABS: MAN.DIFF COMMENT-IMPRESSION MANUAL DIFFERENTIAL; PLATELET MORPHOLOGY COMMENT DECREASED
[2019-04-15] MEDS ORDERED: LIDOCAINE/PRILOCAINE CREAM 5GM TUBE TP SCH (18:15)
[2019-04-15] MEDS ORDERED: ACETAMINOPHEN 325 MG TAB PO PRN (18:15)
[2019-04-15] MEDS ORDERED: ONDANSETRON HCL 4 MG/2 ML VIAL IV PRN (18:15)
[2019-04-15] MEDS ORDERED: LACTULOSE 20 GM/30 ML UDCUP PO SCH ×2 (18:15)
[2019-04-15] MEDS ORDERED: FAMOTIDINE 20MG TAB 20 MG TAB ONE (22:16)
[2019-04-16] MEDS ORDERED: FOLIC ACID 1 MG TABLET PO SCH (09:00)
[2019-04-16] MEDS ORDERED: LEVETIRACETAM 500 MG TABLET PO SCH (09:00)
[2019-04-16] MEDS ORDERED: FAMOTIDINE 20MG TAB 20 MG TAB PO SCH (09:00)
[2019-04-16] MEDS ORDERED: LIDOCAINE 5% TOPICAL PATCH TP SCH (09:00)
[2019-04-16] MEDS ORDERED: THIAMINE HCL 100 MG TABLET PO SCH (09:00)
== END 2019-04-16 01:42 | disposition left against medical advice (07) ==
LOC: EDH 13:58 → EDHIP 13:59
PROVIDERS: ADMIT Family Medicine; ATTEND Family Medicine
DX: K72.90 Hepatic failure, unspecified without coma (principal); K70.30 Alcoholic cirrhosis of liver without ascites; M62.838 Other muscle spasm; I45.81 Long QT syndrome; D64.9 Anemia, unspecified; D69.6 Thrombocytopenia, unspecified; D72.819 Decreased white blood cell count, unspecified; F10.10 Alcohol abuse, uncomplicated; G93.41 Metabolic encephalopathy; I12.0 Hypertensive chronic kidney disease with stage 5 chronic kidney disease or end stage renal disease; N18.6 End stage renal disease; Z86.69 Personal history of other diseases of the nervous system and sense organs; Z99.2 Dependence on renal dialysis; Z79.899 Other long term (current) drug therapy; Z87.891 Personal history of nicotine dependence; Z88.0 Allergy status to penicillin
CPT/HCPCS: 36415; 80053; 82140; 82948; 85025; 93005; 99284; G0378 ×8

== ENCOUNTER 2019-04-16 21:12 | Observation (INO) | payer MEDICARE ==
[~2019-04-16] VITALS: Ht 177.8 cm; Wt 72.6 kg
[~2019-04-16 21:12] MED LIST changes: +LEVE-43 PO; -LEVE500T8 PO
[2019-04-16 21:47] LABS: BASOPHILS % (AUTO) 1.4 % (0.0-5.0); EOSINOPHILS % (AUTO) 7.4 % (0.0-8.0); HEMATOCRIT 24.9 % (42-54); LYMPHOCYTES % (AUTO) 18.1 % (21.0-51.0); MEAN CORPUSCULAR HEMOGLOBIN 31.3 pg (27.0-33.0); MEAN CORPUSCULAR HGB CONC 34.5 g/dL (32.0-36.0); MEAN CORPUSCULAR VOLUME 90.8 fL (79-99); MONOCYTES % (AUTO) 11.6 % (3.0-13.0); NEUTROPHILS % (AUTO) 61.5 % (40.0-77.0); NUCLEATED RED BLOOD CELLS 0.1 % (0.0-0.19); PLATELET COUNT (AUTO) 98 K/uL (130-400); RED BLOOD CELL COUNT(AUTO) 2.74 MIL/uL (4.50-6.20); RED CELL DISTRIBUTION WIDTH 15.3 % (11.0-15.5); WHITE BLOOD COUNT (AUTO) 3.7 K/uL (4.8-10.8)
[2019-04-16 21:58] LABS: ALBUMIN 2.4 g/dL (3.5-5.0); BILIRUBIN,DIRECT 0.2 mg/dL (0.0-0.3); BILIRUBIN,TOTAL 0.4 mg/dL (0.2-1.0); POTASSIUM 3.6 mmol/L (3.5-5.1); TOTAL PROTEIN, SERUM 7.3 g/dL (6.0-8.3)
[2019-04-16 22:00] LABS: INR 1.17 (0.85-1.15); PROTHROMBIN TIME 12.2 SEC (9.6-11.6)
[2019-04-16 22:02] LABS: CREATININE 15.5 mg/dL (0.5-1.5)
[2019-04-16 22:09] LABS: B-TYPE NATRIURETIC PEPTIDE 124 pg/mL (0-100)
[2019-04-16] MEDS ORDERED: ONDANSETRON HCL 4 MG/2 ML VIAL IV PRN (23:15)
[2019-04-16] MEDS: LACTULOSE 20 GM/30 ML UDCUP PO SCH (23:15)
[2019-04-17] MEDS ORDERED: HYDROCODONE/ACETAMINOPHEN 7.5/325 MG TAB ONE (00:48)
[2019-04-17 02:35] VITALS: BP 161/95
[2019-04-17 05:50] LABS: BASOPHILS % (AUTO) 1.2 % (0.0-5.0); EOSINOPHILS % (AUTO) 9.8 % (0.0-8.0); HEMATOCRIT 24.8 % (42-54); LYMPHOCYTES % (AUTO) 31.1 % (21.0-51.0); MEAN CORPUSCULAR HEMOGLOBIN 30.9 pg (27.0-33.0); MEAN CORPUSCULAR HGB CONC 33.6 g/dL (32.0-36.0); MEAN CORPUSCULAR VOLUME 91.9 fL (79-99); NEUTROPHILS % (AUTO) 45.9 % (40.0-77.0); PLATELET COUNT (AUTO) 89 K/uL (130-400); RED CELL DISTRIBUTION WIDTH 15.2 % (11.0-15.5); WHITE BLOOD COUNT (AUTO) 2.9 K/uL (4.8-10.8)
[2019-04-17 06:21] LABS: POTASSIUM 3.6 mmol/L (3.5-5.1)
[2019-04-17 06:25] LABS: BAND NEUTROPHILS % (MANUAL) 4 % (0-2); BASOPHILS % (MANUAL) 2 % (0-2); EOSINOPHILS % (MANUAL) 9 % (1-6); LYMPHOCYTES % (MANUAL) 34 % (22-44); MAN.DIFF COMMENT-IMPRESSION MANUAL DIFFERENTIAL; MONOCYTES % (MANUAL) 8 % (2-9); SEGMENTED NEUTROPHILS % 43 % (40-70)
[2019-04-17 06:34] LABS: CREATININE 14.8 mg/dL (0.5-1.5)
--- NOTE | 2019-04-17 07:01 | NUR ---
PATIENT CONSTANTLY VARIETY LATHE OPERATOR LIGHT, NEEDS MET. PATIENT CONSTANTLY ASKING FOR RELATIONSHIP ADVICE ON HIS "METH HEAD EX GIRLFRIEND." HE THEN STATES " I NEED MY SHAKING PILLS" REDIRECTED BY NURSE THAT HE NEEDS TO BE MORE SPECIFIC. ALL HOME MEDICATIONS RECONCILED. NO OTHER ISSUES AT THIS TIME. CALL LIGHT WITHIN REACH. WILL CONTINUE TO BE OBSERVED. Addendum: 04/17/19 at 0703 by TIAN DIEGO RN RN Amended: Links added.
--- NOTE | 2019-04-17 07:27 | NUR ---
PATIENT ENDORSED TO Ketan OSMAN RN. Addendum: 04/17/19 at 7944 by TIAN DIEGO RN RN Amended: Links added.
[2019-04-17 07:37] VITALS: BP 159/78
--- NOTE | 2019-04-17 08:31 | NUR ---
DIALYSIS NURSE Called nurse Timmons but no answer. Will call again.
[2019-04-17] MEDS: FAMOTIDINE 20MG TAB 20 MG TAB PO SCH ×2 (09:00→22:15)
--- NOTE | 2019-04-17 10:06 | NUR ---
SUZANNA Hood here for hemodialysis. Consent obtained. Hepatitis B ordered stat.
[2019-04-17] MEDS: LIDOCAINE 5% TOPICAL PATCH TP SCH (10:21)
[2019-04-17] MEDS: LEVETIRACETAM 500 MG TABLET PO SCH (10:31)
[2019-04-17] MEDS: FOLIC ACID 1 MG TABLET PO SCH (10:31)
[2019-04-17 10:48] VITALS: BP 189/81
--- NOTE | 2019-04-17 13:51 | NUR ---
Nutrition Intervention: Nutrition consult due to poor appetite and education. Pt. has lost 18#(10% of UBW) in 1 month due to decreased appetite. Pt. on Renal dialysis diet with good p.o. intake, per pt. Labs reviewed(Alb 2.4, Ammonia 144, BUN 110, creat 14.8, GFR 4). Pt. with moderate visceral protein depletion. Protein supplementation contraindicated at this time due to elevated Ammonia level. BMI: 23.3, normal. Pt. reports his first HD tx was in January 2019 but had been non-compliant with tx's due to problems with transportation. Pt. reports transportation issues have been resolved. Pt. educated on Cirrhosis and Renal Dialysis diet and provided with education material. Pt. verbalized understanding. Recommendations: 1) Continue current diet. 2) Cirrhosis and Renal Dialysis diet education given to patient. 3) Continue to monitor pt's nutritional status. 4) Consult RD as nutrition concerns arise. Addendum: 04/17/19 at [address] Amended: Links added.
[2019-04-17] MEDS: HYDROCODONE/ACETAMINOPHEN 7.5/325 MG TAB PO PRN ×2 (15:04→23:17)
[2019-04-17 16:25] VITALS: BP 171/74
[2019-04-17] MEDS: LACTULOSE 20 GM/30 ML UDCUP PO SCH ×2 (18:41→23:12)
[2019-04-17] MEDS: THIAMINE HCL 100 MG TABLET PO SCH (18:41)
[2019-04-17 20:00] VITALS: BP 177/69
[2019-04-18] VITALS: BP 162/79
[2019-04-18 04:00] VITALS: BP 162/79
[2019-04-18 08:14] VITALS: BP 178/73
[2019-04-18 08:52] LABS: POTASSIUM 3.3 mmol/L (3.5-5.1)
[2019-04-18 08:55] LABS: CREATININE 9.6 mg/dL (0.5-1.5)
[2019-04-18] MEDS: FOLIC ACID 1 MG TABLET PO SCH (08:56)
[2019-04-18] MEDS: LEVETIRACETAM 500 MG TABLET PO SCH (08:56)
[2019-04-18] MEDS: LACTULOSE 20 GM/30 ML UDCUP PO SCH ×2 (08:56→15:20)
[2019-04-18] MEDS: THIAMINE HCL 100 MG TABLET PO SCH (08:56)
[2019-04-18] MEDS: FAMOTIDINE 20MG TAB 20 MG TAB PO SCH (08:56)
[2019-04-18] MEDS: LIDOCAINE 5% TOPICAL PATCH TP SCH (08:57)
[2019-04-18 11:42] VITALS: BP 151/70
--- NOTE | 2019-04-18 14:46 | NUR ---
NURSING NOTE Patient is requesting to be discharged. States he has a daughter who has not seen in years and would like to go for the birthday. He spoke with Jerry Irwin for [facility]. She stated to him that if he goes, to make sure he follows up with [facility]. Dr. Cooney, attending, was notified that patient is requesting a discharge. Dr. Cooney spoke in detail with patient about the current issue which is the results of a CXR which reports a mass is showing in his right lung. Patient is aware of this findings. After talking to patient, gave orders for a High-Resolution CT Scan. Then he will write discharge orders and patient is to follow up in the early part of next week with [facility]. Patient was informed of this and agreed to have High Resolution CT scan. Dr. Cooney stated to call him once High Resolution CT scan is done.
--- NOTE | 2019-04-18 15:08 | NUR ---
IMPORT CLERK Dr. Pro came to see patient. Stated no need for a High-Resolution CT chest. Dr. Pro spoke to patient; informed him that patient has a mass in his right lung; that it could be malignant; that he would like for patient to see retail customer service specialist in 2 weeks in his office; that patient needs to provide all the records from his previous encounters where imaging has been done of his lungs to compare if mass was there and if it has grown, and that patient might need a biopsy. Patient verbalized and demonstrated understanding.
[2019-04-18 16:47] VITALS: BP 161/72
[2019-04-20 07:15] LABS: HEPATITIS B CORE IGM Negative (Negative); HEPATITIS Bs ANTIGEN SCREEN P Negative (Negative)
[2019-04-26] MEDS ORDERED: LACT10SO9 PO (16:57)
[2019-04-26] MEDS ORDERED: LEVE-43 PO (16:57)
[2019-04-26] MEDS ORDERED: THIAMINE HCL PO (16:57)
[2019-05-05] MEDS ORDERED: LACT PO (16:04)
[2019-05-05] MEDS ORDERED: NEOM500T PO (16:04)
[2019-05-05] MEDS ORDERED: TRAM50TA4 PO (16:04)
== END 2019-04-18 16:50 | disposition home or self-care (01) ==
LOC: EDH 21:12 → EDHIP 23:15 → 4AH 04-17 01:39 → 3BH 04-17 07:04
PROVIDERS: ADMIT Family Medicine; ATTEND Family Medicine
DX: I12.0 Hypertensive chronic kidney disease with stage 5 chronic kidney disease or end stage renal disease (principal); N18.6 End stage renal disease; K70.30 Alcoholic cirrhosis of liver without ascites; G93.41 Metabolic encephalopathy; R00.0 Tachycardia, unspecified; F12.90 Cannabis use, unspecified, uncomplicated; E87.5 Hyperkalemia; E43 Unspecified severe protein-calorie malnutrition; D61.818 Other pancytopenia; I45.81 Long QT syndrome; E72.20 Disorder of urea cycle metabolism, unspecified; D64.9 Anemia, unspecified; Z91.19 Patient's noncompliance with other medical treatment and regimen; Z99.2 Dependence on renal dialysis; Z79.899 Other long term (current) drug therapy; Z87.891 Personal history of nicotine dependence; Z88.0 Allergy status to penicillin; Z91.013 Allergy to seafood; Z91.048 Other nonmedicinal substance allergy status
CPT/HCPCS: 36415 ×4; 71045; 71250; 80048 ×3; 80053; 80076; 82140 ×3; 82550; 82948; 83880; 84484; 85025 ×3; 85610; 85730; 86704; 86705; 86706; 87340; 93005 ×2; 99284; G0378 ×47; 90935

== ENCOUNTER 2019-04-22 13:36 | Inpatient (IN) | payer MEDICARE ==
[~2019-04-22] VITALS: Ht 177.8 cm; Wt 69.1 kg
[2019-04-22 13:59] LABS: BASOPHILS % (AUTO) 2.8 % (0.0-5.0); EOSINOPHILS % (AUTO) 6.8 % (0.0-8.0); HEMATOCRIT 26.5 % (42-54); LYMPHOCYTES % (AUTO) 18.5 % (21.0-51.0); MEAN CORPUSCULAR HEMOGLOBIN 30.9 pg (27.0-33.0); MEAN CORPUSCULAR HGB CONC 34.3 g/dL (32.0-36.0); MEAN CORPUSCULAR VOLUME 90.1 fL (79-99); MONOCYTES % (AUTO) 9.6 % (3.0-13.0); NEUTROPHILS % (AUTO) 62.3 % (40.0-77.0); PLATELET COUNT (AUTO) 116 K/uL (130-400); RED BLOOD CELL COUNT(AUTO) 2.94 MIL/uL (4.50-6.20); RED CELL DISTRIBUTION WIDTH 14.7 % (11.0-15.5)
[2019-04-22 14:13] LABS: INR 1.15 (0.85-1.15); PARTIAL THROMBOPLASTIN TIME 35.4 SEC (26.3-35.5)
[2019-04-22 14:17] LABS: ALBUMIN 2.5 g/dL (3.5-5.0); BILIRUBIN,TOTAL 0.6 mg/dL (0.2-1.0); POTASSIUM 4.5 mmol/L (3.5-5.1)
[2019-04-22 14:23] LABS: CREATININE 13.1 mg/dL (0.5-1.5)
[2019-04-22] MEDS ORDERED: LACTULOSE 20 GM/30 ML UDCUP ONE ×2 (15:51→17:15)
[2019-04-22] MEDS ORDERED: LACTULOSE 20 GM/30 ML UDCUP PO SCH (17:30)
[2019-04-22] MEDS: LACTULOSE 20 GM/30 ML UDCUP PO SCH (20:00)
[2019-04-22] MEDS ORDERED: LORAZEPAM 2 MG/ML 1 ML VIAL ONE (20:45)
[2019-04-22] MEDS: RIFAXIMIN 550 MG TABLET PO SCH (21:00)
[2019-04-22] MEDS ORDERED: HEPARIN SODIUM/PF 100UNIT/ML 5ML SYRINGE IV ONE (21:07)
[2019-04-22 21:11] LABS: BASOPHILS % (AUTO) 4.8 % (0.0-5.0); EOSINOPHILS % (AUTO) 3.6 % (0.0-8.0); HEMATOCRIT 29.3 % (42-54); LYMPHOCYTES % (AUTO) 12.3 % (21.0-51.0); MEAN CORPUSCULAR HEMOGLOBIN 31.1 pg (27.0-33.0); MONOCYTES % (AUTO) 6.4 % (3.0-13.0); NEUTROPHILS % (AUTO) 72.9 % (40.0-77.0); PLATELET COUNT (AUTO) 167 K/uL (130-400); RED BLOOD CELL COUNT(AUTO) 3.29 MIL/uL (4.50-6.20); RED CELL DISTRIBUTION WIDTH 14.7 % (11.0-15.5); WHITE BLOOD COUNT (AUTO) 6.3 K/uL (4.8-10.8)
[2019-04-22] MEDS ORDERED: FOSPHENYTOIN SODIUM 500 MG/10ML VIAL IJ ONE (21:13)
[2019-04-22] MEDS ORDERED: SODIUM CHLORIDE 0.9% 1000ML 1,000 ML IV ONE (21:14)
[2019-04-22 21:48] LABS: CREATININE 6.3 mg/dL (0.5-1.5)
[2019-04-22 21:51] LABS: POTASSIUM 2.7 mmol/L (3.5-5.1)
[2019-04-22] MEDS ORDERED: IPRATROPIUM/ALBUTEROL SULFATE 3 ML SOLUTION IH ONE (22:56)
[2019-04-22 23:12] LABS: ABG BASE EXCESS 2.6 mmol/L (-2.0-3.0); ABG HCO3 24.1 mmol/L (21.0-28.0); ABG OXYGEN SATURATION 99.6 % (95.0-99.0); ABG PCO2 29 mmHg (35-48)
[2019-04-22] MEDS ORDERED: LORAZEPAM 2 MG/ML 1 ML VIAL IVP PRN (23:45)
[2019-04-23] VITALS (17 sets, daily range): BP systolic 111–163; BP diastolic 58–107
[2019-04-23] MEDS ORDERED: LACTULOSE 20 GM/30 ML UDCUP ONE (03:07)
[2019-04-23] MEDS ORDERED: POTASSIUM CHLORIDE 10% ELIXIR 20 MEQ/15 ML UDCUP ONE (03:25)
--- NOTE | 2019-04-23 04:20 | NUR ---
Received pt from ER via stretcher accompanied by staff ,on room air , with left NGT clamped.Pt. is obtunded no family around.Unable to interview pt at this time.
[2019-04-23] MEDS: LACTULOSE 20 GM/30 ML UDCUP PO SCH ×4 (05:38→16:30)
[2019-04-23 05:43] LABS: POTASSIUM 3.3 mmol/L (3.5-5.1)
--- NOTE | 2019-04-23 05:55 | NUR ---
PT . IS AWAKE AND TRYING TO GET OUT OF BED,NOTIFIED COMMODITIES MANAGER AJ REGARDING AND AND RECEIVED ORDER TO PLACE PT ON ONE TO ONE.hE IS ALSO MADE AWARE OF k LEVEL AND AMMONIA LEVEL NO FURTHER ORDER RECEIVED.
--- NOTE | 2019-04-23 07:23 | NUR ---
Bedside report given to incoming NOD using SBAR,all questions answered.Pt.is for one to one observation and Condenser Tester was notified.Seizure precaution in place.Pt. resting quietly at this time and respirations even and non labored.Blood sugar is 79 this am.Pt. remained NPO with left NGT clamped intact and inplace.Admission papers were not signed because no family was present and pt has altered mental status and unable to sign.
[2019-04-23] MEDS ORDERED: POTASSIUM CHLORIDE 20 MEQ ERTAB PO SCH (08:30)
[2019-04-23] MEDS ORDERED: ONDANSETRON HCL 4 MG/2 ML VIAL IVP PRN (08:30)
[2019-04-23] MEDS: FOLIC ACID/VITAMIN B COMP W-C 1 MG CAP/TAB PO SCH (08:35)
[2019-04-23] MEDS: THIAMINE HCL 100 MG/ML 2ML VIAL IVP SCH (08:35)
[2019-04-23] MEDS: FAMOTIDINE/PF 20 MG/2 ML VIAL IV SCH (08:35)
[2019-04-23] MEDS: RIFAXIMIN 550 MG TABLET PO SCH ×2 (08:36→20:14)
[2019-04-23] MEDS ORDERED: ENOXAPARIN SODIUM 30 MG/0.3 ML SQ SCH (09:00)
[2019-04-23] MEDS: LEVETIRACETAM 500 MG TABLET PO SCH ×2 (09:07→20:14)
--- NOTE | 2019-04-23 11:24 | NUR ---
DYSPHAGIA EVALUATION COMPLETED. -S/S OF ASPIRATION. RECOMMEND MECHANICAL SOFT/CHOPPED, THIN LIQUIDS; PILLS CRUSHED WITH APPLESAUCE. RECOMMENDATIONS: 1. SKILLED SPEECH THERAPY 2-4 XWK. LTG1: Pt WILL TOLERATE LEAST RESTRICTIVE DIET WITH NO OVERT S/S OF ASPIRATION FOR ALL MEALS AND SNACKS. STG1: PT WILL TOLERATE MECHANICAL SOFT/CHOPPED, THIN LIQUIDS WITH NO OVERT S/S OF ASPIRATION. STG2: Pt WILL TOLERATE THERAPEUTIC TRIALS OF ADVANCED TEXTURE OF REGULAR AND THIN LIQUIDS WITH NO OVERT S/S OF ASPIRATION. STG3: Pt WILL COMPLETE ORAL MOTOR EXERCISES WITH 80% ACCURACY. STG4: SKILLED EDUCATION Pt/FAMILY/STAFF. Addendum: 04/23/19 at 1129 by ARMANDO TONEY [facility] Amended: Links added.
--- NOTE | 2019-04-23 12:13 | NUR ---
RD NOTIFICATION DX: ENCEPHALOPATHY, ESRD. HX: ESRD ON HD, ALCOHOLIC LIVER CIRRHOSIS, SEIZURES, HTN, MEDICAL NON-COMPLIANCE. DIET: RENAL DIALYSIS. PO 0%. PT IS OBTUNDED AND REMAINS CONFUSED. PT CAME IN WITH AMMONIA AT 214, AND IS IMPROVING. CURRENT AMMONIA LEVEL AT 61. PT IS ASLEEP DURING TIME OF VISIT. RD SPOKE TO VENEER LAYER, VENEER LAYER RECOMMENDS MECHANICAL SOFT/CHOPPED, WHEN PT IS STABLE. RN IS HOLDING FEEDINGS FOR NOW DUE TO PT BEING OBTUNDED. RD RECOMMENDS CONTINUE CURRENT DIET. ADD MECHANICAL SOFT/CHOPPED TO DIET ORDER. HOLD FEEDINGS UNTIL PT IS STABLE AND ABLE TO EAT. RD WILL CONTINUE TO MONITOR AND FOLLOW UP NEEDED. THANK YOU. Addendum: 04/23/19 at [address] Amended: Links added.
--- NOTE | 2019-04-23 13:30 | NUR ---
DCP CM met with pt discussed dc plans. Pt is still w/AMS unable to answer questions. Obtained info [facility] med records. Pt is independent prior to admission, lives at home with girlfriend, a minor child, and friend Jey. Pt goes to [facility] [place] [facility], friend/girlfriend provides transportation. Pt is well known to CM, was going to [facility] last admission as pt has hx of noncompliance, but signed AMA prior to dc. Pt denies any other equipments/services. Feels safe to go back home, girlfriend and friend able to assist with needs as necessary. Will reassess once pt more stable and coherent. Currently on 1:1. Dcp to home vs SNF. CM to cont to follow up. Addendum: 04/23/19 at 1333 by FINA SMITH LVN CM Amended: Links added.
[2019-04-23] MEDS ORDERED: EPOETIN ALFA 10,000 UNIT/ML VIAL SQ SCH (13:45)
[2019-04-23] MEDS: PHARMACY COMMUNICATION MISC SCH ×2 (14:15→20:16)
[2019-04-23] MEDS ORDERED: IPRATROPIUM 0.5 MG/2.5 ML INH IH PRN (14:45)
[2019-04-23] MEDS: LORAZEPAM 2 MG/ML 1 ML VIAL IM PRN (20:58)
--- NOTE | 2019-04-23 23:30 | NUR ---
ELEVATED BP PT IN PAIN AT THIS TIME . AWAITING CALLBACK FOR PAIN MGT, NO OTHER COMPLAINTS VOICED, WILL MONITOR Addendum: 04/24/19 at 0432 by ROSSANA LIANG RN RN Amended: Links added.
[2019-04-24] VITALS (8 sets, daily range): BP systolic 140–165; BP diastolic 61–88
[2019-04-24] MEDS ORDERED: KETOROLAC TROMETHAMINE 30MG/ML ONE (00:27)
[2019-04-24] MEDS: LACTULOSE 20 GM/30 ML UDCUP PO SCH ×3 (00:33→23:00)
[2019-04-24] MEDS: HYDRALAZINE HCL 20 MG/ML VIAL IV PRN (04:38)
[2019-04-24] MEDS: PHARMACY COMMUNICATION MISC SCH ×3 (05:43→22:01)
[2019-04-24 05:59] LABS: PHOSPHORUS 6.9 mg/dL (2.5-4.9); POTASSIUM 3.9 mmol/L (3.5-5.1)
[2019-04-24 06:05] LABS: HEMATOCRIT 28.8 % (42-54); MEAN CORPUSCULAR HEMOGLOBIN 28.9 pg (27.0-33.0); MEAN CORPUSCULAR HGB CONC 32.2 g/dL (32.0-36.0); MEAN CORPUSCULAR VOLUME 89.9 fL (79-99); PLATELET COUNT (AUTO) 102 K/uL (130-400); RED BLOOD CELL COUNT(AUTO) 3.21 MIL/uL (4.50-6.20); RED CELL DISTRIBUTION WIDTH 14.8 % (11.0-15.5)
[2019-04-24 06:14] LABS: CREATININE 9.2 mg/dL (0.5-1.5)
[2019-04-24 06:20] LABS: BASOPHILS % (MANUAL) 7 % (0-2); EOSINOPHILS % (MANUAL) 4 % (1-6); LYMPHOCYTES % (MANUAL) 25 % (22-44); MAN.DIFF COMMENT-IMPRESSION MANUAL DIFFERENTIAL; MONOCYTES % (MANUAL) 14 % (2-9); SEGMENTED NEUTROPHILS % 50 % (40-70)
[2019-04-24 06:22] LABS: PLATELET MORPHOLOGY COMMENT LARGE PLTS PRESENT
[2019-04-24] MEDS: FAMOTIDINE/PF 20 MG/2 ML VIAL IV SCH (08:59)
[2019-04-24] MEDS: RIFAXIMIN 550 MG TABLET PO SCH ×2 (09:00→20:21)
[2019-04-24] MEDS: LEVETIRACETAM 500 MG TABLET PO SCH ×2 (09:00→20:21)
[2019-04-24] MEDS: FOLIC ACID/VITAMIN B COMP W-C 1 MG CAP/TAB PO SCH (09:00)
[2019-04-24] MEDS: THIAMINE HCL 100 MG/ML 2ML VIAL IVP SCH (09:00)
[2019-04-24] MEDS ORDERED: LACTULOSE 20 GM/30 ML UDCUP PO PRN (13:15)
[2019-04-24] MEDS: KETOROLAC TROMETHAMINE 30MG/ML IV PRN (13:30)
[2019-04-24] MEDS ORDERED: HYDROCODONE/ACETAMINOPHEN 7.5/325 MG TAB PO SCH ×2 (14:07→16:00)
[2019-04-24] MEDS ORDERED: HEPARIN SODIUM 5000UNIT/ML 1ML VIAL ONE (17:05)
[2019-04-24] MEDS ORDERED: 0.9% SODIUM CHLORIDE 1000 ML IV BAG IV PRN (17:15)
[2019-04-24] MEDS ORDERED: ACETAMINOPHEN 325 MG TAB PO PRN (17:15)
[2019-04-24] MEDS ORDERED: SODIUM CHLORIDE 0.9% 1000ML 1,000 ML IV PRN (17:15)
[2019-04-24] MEDS ORDERED: HEPARIN SODIUM 5000UNIT/ML 1ML VIAL IJ PRN (17:15)
[2019-04-24] MEDS ORDERED: NITROGLYCERIN 0.4 MG SL TAB SL PRN (17:15)
--- NOTE | 2019-04-24 20:05 | NUR ---
pt bp elevated pt slightly agitated stating ct scan ordered was not done , explained to pt ,no new order has been issued ,but will certainly clarify in a.m., ,will recheck bp when pt settles down Addendum: 04/25/19 at 0024 by ROSSANA LIANG RN RN Amended: Links added.
[2019-04-25] VITALS: BP 161/72
[2019-04-25] MEDS: HYDRALAZINE HCL 20 MG/ML VIAL IV PRN (00:12)
[2019-04-25 01:15] VITALS: BP 128/69
[2019-04-25] MEDS: LORAZEPAM 2 MG/ML 1 ML VIAL IM PRN (03:31)
[2019-04-25 04:00] VITALS: BP_SYST 134; BP_SYST 156; BP_DIAS 68; BP_DIAS 90
[2019-04-25] MEDS: PHARMACY COMMUNICATION MISC SCH (05:37)
[2019-04-25 06:29] LABS: HEMATOCRIT 26.4 % (42-54); MEAN CORPUSCULAR HEMOGLOBIN 31.7 pg (27.0-33.0); MEAN CORPUSCULAR HGB CONC 35.2 g/dL (32.0-36.0); MEAN CORPUSCULAR VOLUME 90.1 fL (79-99); NUCLEATED RED BLOOD CELLS 0.1 % (0.0-0.19); PLATELET COUNT (AUTO) 107 K/uL (130-400); RED BLOOD CELL COUNT(AUTO) 2.93 MIL/uL (4.50-6.20); RED CELL DISTRIBUTION WIDTH 14.7 % (11.0-15.5); WHITE BLOOD COUNT (AUTO) 3.4 K/uL (4.8-10.8)
[2019-04-25] MEDS: LACTULOSE 20 GM/30 ML UDCUP PO SCH (06:45)
[2019-04-25 07:24] VITALS: BP 125/70
[2019-04-25 08:07] LABS: CREATININE 6.7 mg/dL (0.5-1.5); POTASSIUM 3.3 mmol/L (3.5-5.1)
[2019-04-25] MEDS ORDERED: LACTULOSE 20 GM/30 ML UDCUP PO SCH ×2 (08:15→15:00)
[2019-04-25 08:18] LABS: % IRON SATURATION 24.6 % (30-44)
[2019-04-25 08:19] LABS: BASOPHILS % (MANUAL) 2 % (0-2); EOSINOPHILS % (MANUAL) 9 % (1-6); LYMPHOCYTES % (MANUAL) 25 % (22-44); MAN.DIFF COMMENT-IMPRESSION MANUAL DIFFERENTIAL; MONOCYTES % (MANUAL) 15 % (2-9); PLATELET MORPHOLOGY COMMENT SLIGHTLY DECREASED; SEGMENTED NEUTROPHILS % 49 % (40-70)
[2019-04-25] MEDS: LEVETIRACETAM 500 MG TABLET PO SCH (09:07)
[2019-04-25] MEDS: RIFAXIMIN 550 MG TABLET PO SCH (09:07)
[2019-04-25] MEDS: FOLIC ACID/VITAMIN B COMP W-C 1 MG CAP/TAB PO SCH (09:07)
[2019-04-25] MEDS: THIAMINE HCL 100 MG/ML 2ML VIAL IVP SCH (09:09)
[2019-04-25] MEDS: FAMOTIDINE/PF 20 MG/2 ML VIAL IV SCH (09:09)
[2019-04-25] MEDS: KETOROLAC TROMETHAMINE 30MG/ML IV PRN (09:11)
[2019-04-25 11:26] VITALS: BP 154/66
[2019-04-25 16:00] VITALS: BP 144/57
[2019-04-25] MEDS ORDERED: FOLI1TAB15 PO (16:05)
[2019-04-25] MEDS ORDERED: RIFA550T PO (16:05)
[2019-04-25] MEDS ORDERED: LEVE-43 PO (16:05)
[2019-04-25] MEDS ORDERED: LACT10SO9 PO (16:05)
[2019-04-25] MEDS ORDERED: THIA100T91 PO (16:05)
[2019-04-26] MEDS ORDERED: LACT10SO9 PO (16:57)
[2019-04-26] MEDS ORDERED: THIAMINE HCL PO (16:57)
[2019-04-26] MEDS ORDERED: LEVE-43 PO (16:57)
[2019-05-05] MEDS ORDERED: LACT PO (16:04)
[2019-05-05] MEDS ORDERED: TRAM50TA4 PO (16:04)
[2019-05-05] MEDS ORDERED: NEOM500T PO (16:04)
[2019-06-17] MEDS ORDERED: LEVO250T59 PO (15:23)
[2019-06-17] MEDS ORDERED: ACET-66 PO (15:26)
== END 2019-04-25 16:45 | disposition home or self-care (01) | DRG 441 ==
LOC: EDH 13:36 → EDHIP 16:58 → 2BH 04-23 03:28 → 3DH 04-23 10:35
PROVIDERS: ADMIT Internal Medicine; ATTEND Internal Medicine
PROC: 5A1D70Z Performance of Urinary Filtration, Intermittent, Less than 6 Hours Per Day (ICD-10-PCS; principal; 2019-04-22)
PROC: 5A1D70Z Performance of Urinary Filtration, Intermittent, Less than 6 Hours Per Day (ICD-10-PCS; 2019-04-24)
DX: K72.90 Hepatic failure, unspecified without coma (principal); N18.6 End stage renal disease; G93.41 Metabolic encephalopathy; D61.818 Other pancytopenia; I12.0 Hypertensive chronic kidney disease with stage 5 chronic kidney disease or end stage renal disease; K70.30 Alcoholic cirrhosis of liver without ascites; R56.9 Unspecified convulsions; E87.6 Hypokalemia; T50.3X5A Adverse effect of electrolytic, caloric and water-balance agents, initial encounter; Y92.89 Other specified places as the place of occurrence of the external cause; Z87.891 Personal history of nicotine dependence; Z99.2 Dependence on renal dialysis; Z91.15 Patient's noncompliance with renal dialysis; Z91.19 Patient's noncompliance with other medical treatment and regimen; Z88.8 Allergy status to other drugs, medicaments and biological substances; Z88.0 Allergy status to penicillin; Z91.013 Allergy to seafood
CPT/HCPCS: 36415; 36600; 70450; 71045; 80048; 80053; 80177; 82140; 82550; 82728; 82803; 82948; 83540; 83550; 83735; 84100; 84132; 84484; 85025; 85027; 85610; 85730; 90935; 92610; 93005; 94640; 94664; 99291; G0378; G0480; J0360; J0885; J1642; J1644; J1650; J1885; J2060; J3411; J3490; J7030; Q2009

== ENCOUNTER → 2019-04-26 | Outpatient (CLI) | payer MEDICARE ==
[~2019-04-26] VITALS: Ht 175.3 cm; Wt 74.1 kg
[~2019-04-26] MED LIST changes: +LACT PO; +NEOM500T PO; +RIFA550T PO; +THIAMINE HCL PO; +TRAM50TA4 PO
[2019-04-26 16:13] LABS: BASOPHILS % (AUTO) 3.3 % (0.0-5.0); HEMATOCRIT 29.5 % (42-54); LYMPHOCYTES % (AUTO) 19.9 % (21.0-51.0); MEAN CORPUSCULAR HEMOGLOBIN 31.2 pg (27.0-33.0); MEAN CORPUSCULAR HGB CONC 34.6 g/dL (32.0-36.0); MEAN CORPUSCULAR VOLUME 90.1 fL (79-99); MONOCYTES % (AUTO) 17.5 % (3.0-13.0); NEUTROPHILS % (AUTO) 52.3 % (40.0-77.0); PLATELET COUNT (AUTO) 131 K/uL (130-400); RED BLOOD CELL COUNT(AUTO) 3.27 MIL/uL (4.50-6.20); RED CELL DISTRIBUTION WIDTH 14.8 % (11.0-15.5); WHITE BLOOD COUNT (AUTO) 4.9 K/uL (4.8-10.8)
[2019-04-26 16:25] LABS: INR 1.14 (0.85-1.15); PARTIAL THROMBOPLASTIN TIME 32.4 SEC (26.3-35.5); PROTHROMBIN TIME 11.9 SEC (9.6-11.6)
[2019-04-26 16:54] LABS: POTASSIUM 3.9 mmol/L (3.5-5.1)
[2019-04-26 17:01] LABS: CREATININE 10.1 mg/dL (0.5-1.5)
[2019-04-26 17:09] LABS: HEMOGLOBIN A1C 5.2 % (4.0-6.0)
--- NOTE | 2019-04-26 17:24 | NUR ---
RE: IODINE/SEAFOOD ALLERGY, CRITICAL BUN/CREAT, BLOOD PRESSURE CALLED JAVIER GONZALES AND INFORMED HER THAT PATIENT HAS ELEVATED BUN 57 AND CREAT 10.1 AND THAT PATIENT IS SCHEDULED FOR HEMODIALYSIS TOMORROW. ALSO INFORMED HER THAT PATIENT HAS ALLERGY TO IODINE AND SEAFOOD, PER CHRISTIAN THEY WILL NOT BE USING IODINE FOR THE PROCEDURE. INFORMED HER THAT BLOOD PRESSURE IS 201/107 TAKEN ON PATIENT'S LEFT LEG. PER CHRISTIAN, OK TO PROCEED WITH PROCEDURE TO BE RESCHEDULED FOR NEXT WEEK.
== END | disposition home or self-care (01) ==
LOC: LAB 08:00 → EDSTATUS 04-27 10:30
PROVIDERS: ATTEND Thoracic Surgery (Cardiothoracic Vascular Surgery)
DX: Z01.818 Encounter for other preprocedural examination (principal); M47.815 Spondylosis without myelopathy or radiculopathy, thoracolumbar region; I12.0 Hypertensive chronic kidney disease with stage 5 chronic kidney disease or end stage renal disease; N18.6 End stage renal disease; Z88.8 Allergy status to other drugs, medicaments and biological substances; Z79.899 Other long term (current) drug therapy
CPT/HCPCS: 36415; 71045; 80048; 83036; 85025; 85610; 85730; 93005; A6260

== ENCOUNTER 2019-05-03 05:54 | Inpatient (IN) | payer MEDICARE ==
[~2019-05-03 05:54] MED LIST changes: -LACT PO; -NEOM500T PO; -TRAM50TA4 PO
[2019-05-03 06:28] LABS: BASOPHILS % (AUTO) 2.4 % (0.0-5.0); EOSINOPHILS % (AUTO) 7.9 % (0.0-8.0); HEMATOCRIT 24.7 % (42-54); LYMPHOCYTES % (AUTO) 25.1 % (21.0-51.0); MEAN CORPUSCULAR HEMOGLOBIN 31.5 pg (27.0-33.0); MEAN CORPUSCULAR HGB CONC 34.4 g/dL (32.0-36.0); MEAN CORPUSCULAR VOLUME 91.6 fL (79-99); MONOCYTES % (AUTO) 13.1 % (3.0-13.0); NEUTROPHILS % (AUTO) 51.5 % (40.0-77.0); PLATELET COUNT (AUTO) 105 K/uL (130-400); RED CELL DISTRIBUTION WIDTH 15.1 % (11.0-15.5); WHITE BLOOD COUNT (AUTO) 3.5 K/uL (4.8-10.8)
[2019-05-03 06:41] LABS: POTASSIUM 3.6 mmol/L (3.5-5.1)
[2019-05-03 06:42] LABS: ALBUMIN 2.3 g/dL (3.5-5.0); BILIRUBIN,DIRECT 0.2 mg/dL (0.0-0.3); BILIRUBIN,TOTAL 0.4 mg/dL (0.2-1.0); TOTAL PROTEIN, SERUM 6.4 g/dL (6.0-8.3)
[2019-05-03 06:43] LABS: B-TYPE NATRIURETIC PEPTIDE 203 pg/mL (0-100)
[2019-05-03 06:49] LABS: AMPHET/METH SCREEN,URINE NEGATIVE (NEGATIVE); APPEARANCE,URINE Clear (CLEAR); BARBITURATE SCREEN, URINE NEGATIVE (NEGATIVE); BENZODIAZEPINES SCREEN,URINE NEGATIVE (NEGATIVE); BILIRUBIN,URINE Negative (NEGATIVE); CANNABINOID SCREEN,URINE POSITIVE (NEGATIVE); COCAINE SCREEN,URINE NEGATIVE (NEGATIVE); COLOR,URINE Yellow (YELLOW); GLUCOSE, URINE (UA) TRACE mg/dL (NEGATIVE); KETONES,URINE Negative (NEGATIVE); LEUKOCYTE ESTERASE ,URINE Trace (NEGATIVE); NITRATE,URINE Negative (NEGATIVE); OCCULT BLOOD,URINE Small (NEGATIVE); OPIATE SCREEN,URINE NEGATIVE (NEGATIVE); PH,URINE 6.5 (5.0-8.0); PHENCYCLIDINE SCREEN,URINE NEGATIVE (NEGATIVE); PROTEIN,URINE 300 mg/dL (NEGATIVE); UROBILINOGEN,URINE 0.2 mg/dL (0.2-1.0)
[2019-05-03 06:51] LABS: CREATININE 11.8 mg/dL (0.5-1.5)
[2019-05-03 07:03] LABS: BACTERIA,URINE Rare /HPF (None Seen); RBC,URINE 0-1 /HPF (0-1); SQUAMOUS EPITHELIAL CELL,UR Rare /HPF (0-2)
[2019-05-03] MEDS: LACTULOSE 20 GM/30 ML UDCUP PO SCH ×2 (08:30→17:53)
[2019-05-03] MEDS ORDERED: HYDRALAZINE HCL 20 MG/ML VIAL IV PRN (08:30)
[2019-05-03] MEDS ORDERED: LACTULOSE 20 GM/30 ML UDCUP ONE (08:42)
[2019-05-03] MEDS: FAMOTIDINE/PF 20 MG/2 ML VIAL IV SCH ×2 (09:00→20:18)
[2019-05-03] MEDS ORDERED: RIFAXIMIN 200 MG TABLET PO SCH (09:00)
[2019-05-03] MEDS: RIFAXIMIN 550 MG TABLET PO SCH ×2 (09:00→20:20)
[2019-05-03 09:26] VITALS: BP 170/92
[2019-05-03] MEDS: ACETAMINOPHEN 325 MG TAB PO PRN ×2 (10:30→20:19)
[2019-05-03] MEDS: HEPARIN SODIUM 5000UNIT/ML 1ML VIAL SQ SCH ×2 (10:32→20:20)
[2019-05-03] MEDS ORDERED: SODIUM CHLORIDE 0.9% 1000ML 1,000 ML IV PRN (11:00)
[2019-05-03] MEDS ORDERED: HEPARIN SODIUM 5000UNIT/ML 1ML VIAL IJ PRN ×2 (11:00)
[2019-05-03] MEDS ORDERED: NITROGLYCERIN 0.4 MG SL TAB SL PRN (11:00)
[2019-05-03] MEDS ORDERED: ACETAMINOPHEN 325 MG TAB PO PRN (11:00)
[2019-05-03] MEDS ORDERED: 0.9% SODIUM CHLORIDE 1000 ML IV BAG IV PRN (11:00)
[2019-05-03 11:54] VITALS: BP 181/87
--- NOTE | 2019-05-03 15:20 | NUR ---
DC PLAN VISITED WITH PATIENT. PATIENT LIVES WITH FRIEND. INDEPENDENT ABLE TO PERFORM ADL'S. PATIENT HAS NO SERVICES. IN THE PROCESS OF GETTING PROVIDER. PATIENT USES A WALKER. SAID ALREADY SCHEDULED FOR FISTULOGRAM THIS WEEK. LET HILARY NURSE KNOW OF POSSIBLE FISTULOGRAM AND IF PATIENT GOING TO BE DISCHARGED AND RETURN FOR OPT PROCEDURE OR ARE WE TRYING TO GET DR. PAYNE TO DO PROCEDURE EARLY. Addendum: 05/03/19 at 1530 by QUE HAIDER RN CM Amended: Links added.
[2019-05-03 16:28] VITALS: BP 159/84
[2019-05-03 19:26] VITALS: BP 168/71
[2019-05-03 23:41] VITALS: BP 153/71
[2019-05-04] MEDS: LACTULOSE 20 GM/30 ML UDCUP PO SCH ×4 (02:24→23:50)
[2019-05-04 04:41] LABS: HEMATOCRIT 26.4 % (42-54); MEAN CORPUSCULAR HEMOGLOBIN 31.1 pg (27.0-33.0); MEAN CORPUSCULAR HGB CONC 34.5 g/dL (32.0-36.0); MEAN CORPUSCULAR VOLUME 90.1 fL (79-99); PLATELET COUNT (AUTO) 108 K/uL (130-400); RED BLOOD CELL COUNT(AUTO) 2.93 MIL/uL (4.50-6.20); RED CELL DISTRIBUTION WIDTH 14.6 % (11.0-15.5)
[2019-05-04 04:44] LABS: PHOSPHORUS 5.9 mg/dL (2.5-4.9); POTASSIUM 3.6 mmol/L (3.5-5.1)
[2019-05-04 05:23] VITALS: BP 164/87
[2019-05-04 05:36] LABS: CREATININE 8.1 mg/dL (0.5-1.5)
[2019-05-04 07:57] VITALS: BP 187/86
[2019-05-04] MEDS: RIFAXIMIN 550 MG TABLET PO SCH ×2 (09:15→20:11)
[2019-05-04] MEDS: HEPARIN SODIUM 5000UNIT/ML 1ML VIAL SQ SCH ×2 (09:16→20:12)
[2019-05-04] MEDS: ACETAMINOPHEN 325 MG TAB PO PRN (09:17)
[2019-05-04] MEDS ORDERED: EPOETIN ALFA 10,000 UNIT/ML VIAL SQ SCH (11:00)
[2019-05-04] MEDS: FAMOTIDINE/PF 20 MG/2 ML VIAL IV SCH ×2 (11:17→20:11)
[2019-05-04 11:38] VITALS: BP 180/75
[2019-05-04 16:20] VITALS: BP 180/90
[2019-05-04 20:13] VITALS: BP 183/93
[2019-05-05] VITALS (24 sets, daily range): BP systolic 139–161; BP diastolic 76–101
[2019-05-05] MEDS: ACETAMINOPHEN 325 MG TAB PO PRN (00:13)
[2019-05-05 04:01] LABS: BASOPHILS % (AUTO) 0.7 % (0.0-5.0); EOSINOPHILS % (AUTO) 0.6 % (0.0-8.0); HEMATOCRIT 28.5 % (42-54); MEAN CORPUSCULAR HEMOGLOBIN 31.5 pg (27.0-33.0); MEAN CORPUSCULAR HGB CONC 34.6 g/dL (32.0-36.0); MEAN CORPUSCULAR VOLUME 90.9 fL (79-99); MONOCYTES % (AUTO) 10.9 % (3.0-13.0); NEUTROPHILS % (AUTO) 77.8 % (40.0-77.0); PLATELET COUNT (AUTO) 98 K/uL (130-400); RED BLOOD CELL COUNT(AUTO) 3.14 MIL/uL (4.50-6.20); RED CELL DISTRIBUTION WIDTH 14.4 % (11.0-15.5)
[2019-05-05 04:09] LABS: ALBUMIN 2.4 g/dL (3.5-5.0); CREATININE 6.8 mg/dL (0.5-1.5); MAGNESIUM 2.1 mg/dL (1.80-2.40); PHOSPHORUS 3.2 mg/dL (2.5-4.9); POTASSIUM 3.7 mmol/L (3.5-5.1)
[2019-05-05 04:25] LABS: INR 1.11 (0.85-1.15); PARTIAL THROMBOPLASTIN TIME 30.8 SEC (26.3-35.5); PROTHROMBIN TIME 11.6 SEC (9.6-11.6)
[2019-05-05] MEDS: LACTULOSE 20 GM/30 ML UDCUP PO SCH ×2 (08:30→16:30)
--- NOTE | 2019-05-05 08:30 | NUR ---
AM ASSESSMENT PT LAYING IN BED, HOB ELEVATED 30 DEGREES, RESTING. A/O X 3. NO SOB. NO DISTRESS NOTED. DENIES CHEST PAIN OR DISCOMFORT. DENIES PALPITATIONS. PT REFUSING TELEMETRY. DENIES N/V AND/OR DIARRHEA. NPO STATUS REINFORCED. PT TO HAVE LT AV FISTULA BY DR PAYNE TODAY. LT ARM PRECAUTIONS IN PLACE & REINFORCED. RSC PERMACATH. HS TTS. UP AD ELVA. INSTRUCTED TO CALL FOR ASSISTANCE. CALL SYDNEY W/IN REACH.
[2019-05-05] MEDS: HEPARIN SODIUM 5000UNIT/ML 1ML VIAL SQ SCH (09:00)
[2019-05-05] MEDS: FAMOTIDINE/PF 20 MG/2 ML VIAL IV SCH (09:00)
[2019-05-05] MEDS: RIFAXIMIN 550 MG TABLET PO SCH (09:00)
[2019-05-05] MEDS ORDERED: BACITRACIN 50,000 UNIT VIAL ONE (10:32)
[2019-05-05] MEDS ORDERED: PAPAVERINE HCL 30 MG/ML 2ML VIAL ONE (10:32)
--- NOTE | 2019-05-05 10:45 | NUR ---
STATUS PT TAKEN TO PRE-OP HOLDING VIA BED.
[2019-05-05] MEDS: CLINDAMYCIN 900 MG/D5% WATER 50 ML IV SCH ×2 (11:00→11:45)
[2019-05-05] MEDS ORDERED: LIDOCAINE PF 2% 5ML ABBOJECT ONE (11:22)
[2019-05-05] MEDS ORDERED: DEXAMETHASONE SOD PHOSPHATE 10MG/ML 1ML VIAL ONE (11:22)
[2019-05-05] MEDS ORDERED: MIDAZOLAM HCL 1 MG/ML 2ML VIAL ONE ×2 (11:23→13:14)
[2019-05-05] MEDS ORDERED: ONDANSETRON HCL 4 MG/2 ML VIAL ONE (11:23)
[2019-05-05] MEDS ORDERED: PROPOFOL 10 MG/ML 20ML VIAL IV ONE (11:23)
[2019-05-05] MEDS ORDERED: FENTANYL CITRATE PF 50 MCG/1 ML 2ML VIAL ONE (11:23)
[2019-05-05] MEDS ORDERED: EPHEDRINE SULFATE 50 MG/ML AMPULE ONE (12:41)
[2019-05-05] MEDS ORDERED: MEPERIDINE-PF 25 MG/ML SYG ONE (13:08)
[2019-05-05] MEDS ORDERED: TRAMADOL HCL 50 MG TABLET PO PRN ×2 (13:30)
--- NOTE | 2019-05-05 14:15 | NUR ---
STATUS PT RECEIVED FROM PACU VIA BED, S/P LT AV-FISTULA BY DR PAYNE. LT AV-FISTULA DSG DRY & INTACT. NO BLEEDING, NO DRAINAGE NOTED. (+) BRUIT/(+)THRILL. (+) LT RADIAL PULSES. GOOD CIRCULATION TO LUE. INSTRUCTED TO CALL FOR ASSISTANCE. CALL SYDNEY W/IN REACH.
--- NOTE | 2019-05-05 15:15 | NUR ---
MD VISIT DR ADAMES IN TO SEE PT. PT MAY BE DISCHARGED HOME TODAY FROM NEPHROLOGY STANDPOINT. PT TO ATTEND HD SCHEDULE. PT REMINDED BY DR ADAMES.
[2019-05-05] MEDS ORDERED: TRAM50TA4 PO ×2 (16:04)
[2019-05-05] MEDS ORDERED: NEOM500T PO ×2 (16:04)
[2019-05-05] MEDS ORDERED: LACT PO ×2 (16:04)
--- NOTE | 2019-05-05 16:50 | NUR ---
DISCHARGE VERBAL & WRITTEN DISCHARGE INSTRUCTIONS REVIEWED & GIVEN TO PT. QUESTIONS ENCOURAGED & CLARIFIED. PROPER CARE & ACTIVITY AFTER LT AV-FISTULA GIVEN REVIEWED. NEW PRESCRIBED MEDICATIONS REVIEWED. PT INFORMED PRESCRIPTION ELECTRONICALLY TRANSMITTED TO PHARMACY IN FILE. REMINDED TO ATTEND SCHEDULED HD TOMORROW. IV DISCONTINUED. PT TO GATHER PERSONAL BELONGINGS. WILL NOTIFY STAFF WHEN FAMILY ARRIVES TO HOSPITAL TO TAKE PT HOME.
--- NOTE | 2019-05-05 18:15 | NUR ---
DISCHARGE FAMILY HERE TO TAKE PT HOME. PT TAKEN TO PRIVATE VEHICLE VIA WC BY Katherine OSEGUERA PCP. NO DISTRESS NOTED.
--- NOTE | 2019-05-06 08:53 | NUR ---
DC PLAN DR. BANUELOS ASKED ABOUT CHANGING THE DIALYSIS DAY. CALLED US [facility] AND THEY SAID THAT THERE IS NO CHAIRS ON [facility]. THEY ARE AWARE THAT PATIENT WANTS TO MOVE BUT THEY SAID THAT HE IS NON COMPLIANT WITH TTS SO HE IS LOW ON THE LIST TO BE MOVED. Addendum: 05/06/19 at 0856 by QUE HAIDER RN CM Amended: Links added.
[2019-06-17] MEDS ORDERED: LEVO250T59 PO (15:23)
[2019-06-17] MEDS ORDERED: ACET-66 PO (15:26)
== END 2019-05-05 18:15 | disposition home or self-care (01) | DRG 264 ==
LOC: EDH 05:54 → EDHIP 08:24 → 2AH 09:22
PROVIDERS: ADMIT Internal Medicine; ATTEND Internal Medicine
PROC: 5A1D70Z Performance of Urinary Filtration, Intermittent, Less than 6 Hours Per Day (ICD-10-PCS; 2019-05-03)
PROC: 5A1D70Z Performance of Urinary Filtration, Intermittent, Less than 6 Hours Per Day (ICD-10-PCS; 2019-05-04)
PROC: 03180ZD Bypass Left Brachial Artery to Upper Arm Vein, Open Approach (ICD-10-PCS; principal; 2019-05-05 11:20)
DX: T82.898A Other specified complication of vascular prosthetic devices, implants and grafts, initial encounter (principal); J96.01 Acute respiratory failure with hypoxia; N18.6 End stage renal disease; G93.41 Metabolic encephalopathy; I12.0 Hypertensive chronic kidney disease with stage 5 chronic kidney disease or end stage renal disease; E87.70 Fluid overload, unspecified; K70.31 Alcoholic cirrhosis of liver with ascites; F19.10 Other psychoactive substance abuse, uncomplicated; Y83.2 Surgical operation with anastomosis, bypass or graft as the cause of abnormal reaction of the patient, or of later complication, without mention of misadventure at the time of the procedure; G40.909 Epilepsy, unspecified, not intractable, without status epilepticus; D64.9 Anemia, unspecified; K72.90 Hepatic failure, unspecified without coma; Z53.20 Procedure and treatment not carried out because of patient's decision for unspecified reasons; Z99.2 Dependence on renal dialysis; Z91.19 Patient's noncompliance with other medical treatment and regimen; Z91.15 Patient's noncompliance with renal dialysis; Z87.891 Personal history of nicotine dependence; Z88.0 Allergy status to penicillin; Z91.041 Radiographic dye allergy status; Z79.899 Other long term (current) drug therapy; Y92.89 Other specified places as the place of occurrence of the external cause
CPT/HCPCS: 36415; 70450; 71045; 80048; 80076; 80305; 81001; 82040; 82140; 83735; 83880; 84100; 84484; 85025; 85027; 85610; 85730; 86850; 86900; 86901; 87088; 90935; 93005; 93970; C1757; G0378; J0360; J0885; J1100; J1644; J2001; J2175; J2250; J2405; J2440; J2704; J3010; J3490; J7030; J7040

== ENCOUNTER 2019-05-24 14:07 | Inpatient (IN) | payer MEDICARE ==
[~2019-05-24] VITALS: Ht 177.8 cm; Wt 70.2 kg
[~2019-05-24 14:07] MED LIST changes: +LACT PO; -LACT10SO9 PO; -LIDOP TP; +NEOM500T PO; -RIFA550T PO; +TRAM50TA4 PO
[2019-05-24 14:41] LABS: BASOPHILS % (AUTO) 2.8 % (0.0-5.0); EOSINOPHILS % (AUTO) 16.3 % (0.0-8.0); HEMATOCRIT 26.8 % (42-54); LYMPHOCYTES % (AUTO) 21.7 % (21.0-51.0); MEAN CORPUSCULAR HEMOGLOBIN 31.1 pg (27.0-33.0); MEAN CORPUSCULAR HGB CONC 33.7 g/dL (32.0-36.0); MEAN CORPUSCULAR VOLUME 92.2 fL (79-99); NEUTROPHILS % (AUTO) 50.2 % (40.0-77.0); NUCLEATED RED BLOOD CELLS 0.1 % (0.0-0.19); PLATELET COUNT (AUTO) 94 K/uL (130-400); RED BLOOD CELL COUNT(AUTO) 2.91 MIL/uL (4.50-6.20); RED CELL DISTRIBUTION WIDTH 14.3 % (11.0-15.5); WHITE BLOOD COUNT (AUTO) 3.3 K/uL (4.8-10.8)
[2019-05-24 14:53] LABS: INR 1.22 (0.85-1.15); PARTIAL THROMBOPLASTIN TIME 35.4 SEC (26.3-35.5); PROTHROMBIN TIME 12.7 SEC (9.6-11.6)
[2019-05-24 14:56] LABS: ALBUMIN 2.5 g/dL (3.5-5.0); BILIRUBIN,TOTAL 0.7 mg/dL (0.2-1.0); POTASSIUM 3.5 mmol/L (3.5-5.1); TOTAL PROTEIN, SERUM 6.7 g/dL (6.0-8.3)
[2019-05-24 14:58] LABS: CREATININE 15.1 mg/dL (0.5-1.5)
[2019-05-24 15:01] LABS: PLATELET MORPHOLOGY COMMENT DECREASED
[2019-05-24] MEDS ORDERED: LACTULOSE 20 GM/30 ML UDCUP ONE (17:00)
[2019-05-24] MEDS ORDERED: LACTULOSE 20 GM/30 ML UDCUP PO PRN (19:00)
[2019-05-24] MEDS ORDERED: ONDANSETRON HCL 4 MG/2 ML VIAL IV PRN (19:00)
[2019-05-24] MEDS: LACTULOSE 20 GM/30 ML UDCUP PO SCH (19:00)
[2019-05-24] MEDS ORDERED: HYDRALAZINE HCL 20 MG/ML VIAL IV PRN (19:30)
[2019-05-24 20:45] VITALS: BP 177/97
--- NOTE | 2019-05-24 21:41 | NUR ---
DIALYSIS Lilibeth dialysis nurse here to initiate HD.
--- NOTE | 2019-05-24 22:57 | NUR ---
PAGED SPECIAL EVENTS MANAGER Pt c/o chest pain,back hurts.Paged Aj Gigi LUIS.
[2019-05-24 23:00] VITALS: BP 135/79
[2019-05-24] MEDS ORDERED: ACETAMINOPHEN 325 MG TAB PO PRN (23:30)
[2019-05-24] MEDS ORDERED: SODIUM CHLORIDE 0.9% 1000ML 1,000 ML IV PRN (23:30)
[2019-05-24] MEDS ORDERED: NITROGLYCERIN 0.4 MG SL TAB SL PRN (23:30)
[2019-05-24] MEDS ORDERED: 0.9% SODIUM CHLORIDE 1000 ML IV BAG IV PRN (23:30)
[2019-05-24] MEDS ORDERED: HEPARIN SODIUM 5000UNIT/ML 1ML VIAL ONE (23:40)
[2019-05-25 03:00] VITALS: BP 155/80
[2019-05-25] MEDS: LACTULOSE 20 GM/30 ML UDCUP PO SCH ×3 (03:11→18:14)
[2019-05-25 05:03] LABS: HEMATOCRIT 25.7 % (42-54); MEAN CORPUSCULAR HEMOGLOBIN 31.3 pg (27.0-33.0); MEAN CORPUSCULAR VOLUME 89.4 fL (79-99); PLATELET COUNT (AUTO) 91 K/uL (130-400); RED BLOOD CELL COUNT(AUTO) 2.88 MIL/uL (4.50-6.20); WHITE BLOOD COUNT (AUTO) 2.7 K/uL (4.8-10.8)
[2019-05-25 05:15] LABS: ALBUMIN 2.3 g/dL (3.5-5.0); BILIRUBIN,TOTAL 0.7 mg/dL (0.2-1.0); PHOSPHORUS 5.4 mg/dL (2.5-4.9); POTASSIUM 3.1 mmol/L (3.5-5.1); TOTAL PROTEIN, SERUM 6.6 g/dL (6.0-8.3)
[2019-05-25 05:27] LABS: CREATININE 10.2 mg/dL (0.5-1.5)
[2019-05-25 06:11] LABS: BASOPHILS % (MANUAL) 4 % (0-2); EOSINOPHILS % (MANUAL) 12 % (1-6); LYMPHOCYTES % (MANUAL) 24 % (22-44); MONOCYTES % (MANUAL) 12 % (2-9); SEGMENTED NEUTROPHILS % 48 % (40-70)
[2019-05-25 06:12] LABS: MAN.DIFF COMMENT-IMPRESSION MANUAL DIFFERENTIAL
[2019-05-25 06:13] LABS: PLATELET MORPHOLOGY COMMENT MARKED DECREASE
--- NOTE | 2019-05-25 06:20 | NUR ---
SLEPT Pt slept well thru the night after dialysis.Voiced no complaints of pain or discomfort.
[2019-05-25 07:00] VITALS: BP 186/91
--- NOTE | 2019-05-25 08:15 | NUR ---
Patient reports phone is missing, pacing around room after taking a shower. Phone found in linens, patient still pacing around room, appears agitated. BP 186/91, denies headache or blurred vision. Hydralazine 10 mg to be administered per PRN order.
[2019-05-25] MEDS: FOLIC ACID 1 MG TABLET PO SCH (08:27)
[2019-05-25] MEDS: LEVETIRACETAM 500 MG TABLET PO SCH (08:27)
[2019-05-25] MEDS: THIAMINE HCL 100 MG TABLET PO SCH (08:27)
[2019-05-25] MEDS: FAMOTIDINE 20MG TAB 20 MG TAB PO SCH (08:27)
--- NOTE | 2019-05-25 10:21 | NUR ---
Reviewed dialysis treatment yesterday and current labs with Dr. Lawson. Patient labs reviewed and patient assessed. Received verbal orders for oncology social worker consult, CBC, BMP, Phosphate for 05/26/19 AM.
[2019-05-25 11:00] VITALS: BP 168/69
--- NOTE | 2019-05-25 14:25 | NUR ---
WYP CM met with pt discussed dc plans. Pt is is independent prior to admission, lives at home with girlfriend, minor child. Pt goes to [facility]. Denies any equipments/services. Pt is well known readmission, noncompliance w/dialysis. Feels safe to go back home, girlfriend and friend Jey assist with transportations, pt arranges own needs. DC plan to home once stable. CM to cont to follow up. Addendum: 05/25/19 at 1427 by FINA SMITH LVN CM Amended: Links added.
[2019-05-25 16:00] VITALS: BP 146/79
--- NOTE | 2019-05-25 16:34 | NUR ---
RD Notification Pt admitted for ESRD, medical noncompliance. Pt tolerating Renal Dialysis Diet order with no report of GI distress, Good PO intake( 100%). Pt asleep/drowsy at time of visit; RD to follow up for diet education reinforcement as necessary, although diet education provided in the past. Recommend to continue Renal Dialysis diet order. Pt s/p Hemodialysis. Pt LBM 05/24/19. Pt monitored labs: K 3.1, BUN 59, Cr 10.2, GFR 6, Ca 8.2, P 5.4, NH3 149, Alb 2.3. RD to continue to monitor. Please notify RD as additional nutrition concerns arise. Thank you. Addendum: 05/25/19 at [address] Amended: Links added.
[2019-05-25 19:00] VITALS: BP 186/86
[2019-05-25] MEDS ORDERED: HEPARIN SODIUM 5000UNIT/ML 1ML VIAL ONE (21:37)
[2019-05-25] MEDS ORDERED: SODIUM CHLORIDE 0.9% 1000ML 1,000 ML IV PRN (22:00)
[2019-05-25] MEDS ORDERED: NITROGLYCERIN 0.4 MG SL TAB SL PRN (22:00)
[2019-05-25] MEDS ORDERED: ACETAMINOPHEN 325 MG TAB PO PRN (22:00)
[2019-05-25] MEDS ORDERED: HEPARIN SODIUM 5000UNIT/ML 1ML VIAL IJ PRN (22:00)
[2019-05-25] MEDS ORDERED: 0.9% SODIUM CHLORIDE 1000 ML IV BAG IV PRN (22:00)
--- NOTE | 2019-05-25 22:25 | NUR ---
DIALYSIS Pt was dialysed for 3 hrs,total fluid removed 2 liters,ramya well.
[2019-05-25 23:00] VITALS: BP 126/71
[2019-05-25] MEDS: TRAMADOL HCL 50 MG TABLET PO PRN (23:02)
[2019-05-26 03:00] VITALS: BP 147/106
[2019-05-26] MEDS: LACTULOSE 20 GM/30 ML UDCUP PO SCH (03:33)
--- NOTE | 2019-05-26 03:36 | NUR ---
BEHAVIOR Pt states he could not go to sleep because he keeps going to the bathroom with the lactulose.He wants Vicodin,I told keron there's no order for Vicodin.He said,"You're the only one who does not give it to me".Last time the nurse gave it to me without calling the doctor.
--- NOTE | 2019-05-26 04:51 | NUR ---
PAGED WHEEL TRUER Paged Die Sinker Morales Yu notified re pt.s asking for Vicodin and does not want to take his Lactulose,Tramadol offerred but he refused.Die Sinker did not order Vicodin this time.
[2019-05-26 05:46] LABS: HEMATOCRIT 31.3 % (42-54); MEAN CORPUSCULAR HEMOGLOBIN 31.1 pg (27.0-33.0); MEAN CORPUSCULAR HGB CONC 34.3 g/dL (32.0-36.0); MEAN CORPUSCULAR VOLUME 90.5 fL (79-99); NUCLEATED RED BLOOD CELLS 0.1 % (0.0-0.19); PLATELET COUNT (AUTO) 104 K/uL (130-400); RED BLOOD CELL COUNT(AUTO) 3.46 MIL/uL (4.50-6.20)
[2019-05-26 05:52] LABS: CREATININE 7.4 mg/dL (0.5-1.5); PHOSPHORUS 4.8 mg/dL (2.5-4.9); POTASSIUM 3.2 mmol/L (3.5-5.1)
[2019-05-26] MEDS: TRAMADOL HCL 50 MG TABLET PO PRN (06:05)
[2019-05-26 06:32] LABS: BASOPHILS % (MANUAL) 3 % (0-2); EOSINOPHILS % (MANUAL) 14 % (1-6); LYMPHOCYTES % (MANUAL) 15 % (22-44); MAN.DIFF COMMENT-IMPRESSION MANUAL DIFFERENTIAL; MONOCYTES % (MANUAL) 8 % (2-9); SEGMENTED NEUTROPHILS % 60 % (40-70)
[2019-05-26 07:00] VITALS: BP 164/70
[2019-05-26 07:15] LABS: HEPATITIS A ANTIBODY IGM Negative (Negative); HEPATITIS B CORE IGM Negative (Negative); HEPATITIS Bs ANTIGEN SCREEN P Negative (Negative)
[2019-05-26] MEDS ORDERED: FOLIC ACID/VITAMIN B COMP W-C 1 MG CAP/TAB PO SCH (09:00)
[2019-05-26] MEDS: FAMOTIDINE 20MG TAB 20 MG TAB PO SCH (09:51)
[2019-05-26] MEDS: LEVETIRACETAM 500 MG TABLET PO SCH (09:52)
[2019-05-26] MEDS: THIAMINE HCL 100 MG TABLET PO SCH (09:52)
[2019-05-26] MEDS: FOLIC ACID 1 MG TABLET PO SCH (09:54)
[2019-05-26] MEDS ORDERED: Folic Acid/Vitamin B Comp W-C PO (11:40)
[2019-05-26] MEDS ORDERED: FAMO20TA8 PO (11:40)
--- NOTE | 2019-05-26 12:22 | NUR ---
ROSANGELA MAKING ROUNDS ,LET HIM KNOW PATIENT IS BEING DISCHARGED ,PER ROSANGELA FOR PT TO GO TO RENAL TO GET HIS DIALYSIS . CALLED AND PER STAFF STATING SHORT STAFFED AND WONT HAVE A CHAIR THIS AFTERNOON . MAGALIE CARDONA KNOW . ROSANGELA CALLED TO US [facility] REGARDING PATIENT TO GO THIS AFTERNOON TO GET DIALYSIS. NUMBER GIVEN TO DIMITRI FROM US [facility] NUMBER PROVIDED BY PATIENT [phone].DIMITRI GAVE TIME FOR PT TO GO AT 3:30PM. EXPLAINED TO PATIENT ON DISCHARGE IMPORTANCE TO GO AT 3:30PM AND TO BE EXPECTING A CALL FROM RENAL . PATIENT STATED " I WONT KNOW IF I WOULD HAVE A RIDE BUT OK ". "I KNOW MORE I WONT BE ABLE TO . LET HIM KNOW US RENAL WILL BE CALLING HIM .PATIENT STATED OK
[2019-06-17] MEDS ORDERED: LEVO250T59 PO (15:23)
[2019-06-17] MEDS ORDERED: ACET-66 PO (15:26)
== END 2019-05-26 12:35 | disposition home or self-care (01) | DRG 441 ==
LOC: EDH 14:07 → OBSVTOIN 18:48 → EDHIP 18:48 → 3DH 20:13
PROVIDERS: ADMIT Hospitalist; ATTEND Hospitalist
PROC: 5A1D70Z Performance of Urinary Filtration, Intermittent, Less than 6 Hours Per Day (ICD-10-PCS; principal; 2019-05-24)
PROC: 5A1D70Z Performance of Urinary Filtration, Intermittent, Less than 6 Hours Per Day (ICD-10-PCS; 2019-05-25)
DX: K72.90 Hepatic failure, unspecified without coma (principal); N18.6 End stage renal disease; D61.818 Other pancytopenia; E44.0 Moderate protein-calorie malnutrition; I12.0 Hypertensive chronic kidney disease with stage 5 chronic kidney disease or end stage renal disease; E87.70 Fluid overload, unspecified; K70.31 Alcoholic cirrhosis of liver with ascites; Z91.19 Patient's noncompliance with other medical treatment and regimen; Z99.2 Dependence on renal dialysis; Z91.15 Patient's noncompliance with renal dialysis; Z87.891 Personal history of nicotine dependence; Z88.0 Allergy status to penicillin; Z91.041 Radiographic dye allergy status; Z68.22 Body mass index [BMI] 22.0-22.9, adult
CPT/HCPCS: 36415; 71046; 80048; 80053; 80074; 82140; 84100; 84484; 85025; 85027; 85610; 85730; 90935; 93005; G0378; J0360; J1644

== ENCOUNTER 2019-06-01 02:40 | Emergency (ER) | payer MEDICARE ==
[~2019-06-01 02:40] MED LIST changes: +FAMO20TA8 PO; +Folic Acid/Vitamin B Comp W-C PO; -NEOM500T PO; -THIAMINE HCL PO
[2019-06-01 02:50] LABS: BASOPHILS % (AUTO) 2.5 % (0.0-5.0); EOSINOPHILS % (AUTO) 13.7 % (0.0-8.0); LYMPHOCYTES % (AUTO) 20.6 % (21.0-51.0); MEAN CORPUSCULAR HEMOGLOBIN 31.3 pg (27.0-33.0); MEAN CORPUSCULAR HGB CONC 34.3 g/dL (32.0-36.0); MEAN CORPUSCULAR VOLUME 91.1 fL (79-99); MONOCYTES % (AUTO) 11.6 % (3.0-13.0); NEUTROPHILS % (AUTO) 51.6 % (40.0-77.0); PLATELET COUNT (AUTO) 77 K/uL (130-400); RED BLOOD CELL COUNT(AUTO) 2.86 MIL/uL (4.50-6.20); RED CELL DISTRIBUTION WIDTH 13.3 % (11.0-15.5); WHITE BLOOD COUNT (AUTO) 3.6 K/uL (4.8-10.8)
[2019-06-01 03:08] LABS: ALBUMIN 2.6 g/dL (3.5-5.0); BILIRUBIN,TOTAL 0.6 mg/dL (0.2-1.0); POTASSIUM 3.9 mmol/L (3.5-5.1); TOTAL PROTEIN, SERUM 6.7 g/dL (6.0-8.3)
[2019-06-01 04:03] LABS: INR 1.15 (0.85-1.15); PARTIAL THROMBOPLASTIN TIME 32.8 SEC (26.3-35.5)
[2019-06-01 05:35] LABS: AMPHET/METH SCREEN,URINE NEGATIVE (NEGATIVE); BARBITURATE SCREEN, URINE NEGATIVE (NEGATIVE); BENZODIAZEPINES SCREEN,URINE NEGATIVE (NEGATIVE); CANNABINOID SCREEN,URINE POSITIVE (NEGATIVE); COCAINE SCREEN,URINE NEGATIVE (NEGATIVE); OPIATE SCREEN,URINE NEGATIVE (NEGATIVE); PHENCYCLIDINE SCREEN,URINE NEGATIVE (NEGATIVE)
== END 2019-06-01 06:39 | disposition home or self-care (01) ==
LOC: EDH 02:40
DX: N18.6 End stage renal disease (principal); Z99.2 Dependence on renal dialysis; Z88.0 Allergy status to penicillin; Z91.041 Radiographic dye allergy status
CPT/HCPCS: 36415; 71045; 80053; 80305; 82550; 84484; 85025; 85610; 85730; 87804; 93005

== ENCOUNTER 2019-06-12 09:20 | Emergency (ER) | payer MEDICARE ==
[2019-06-12] MEDS ORDERED: LEVETIRACETAM 500 MG TABLET PO ONE (09:42)
[2019-06-12] MEDS ORDERED: TETANUS/DIPHTHERIA TOXOID [ADULT] 0.5 ML VIAL IM ONE (09:42)
[2019-06-12 09:50] LABS: BASOPHILS % (AUTO) 2.2 % (0.0-5.0); EOSINOPHILS % (AUTO) 11.1 % (0.0-8.0); HEMATOCRIT 29.3 % (42-54); LYMPHOCYTES % (AUTO) 15.2 % (21.0-51.0); MEAN CORPUSCULAR HEMOGLOBIN 30.7 pg (27.0-33.0); MEAN CORPUSCULAR HGB CONC 33.4 g/dL (32.0-36.0); MEAN CORPUSCULAR VOLUME 92.1 fL (79-99); MONOCYTES % (AUTO) 8.3 % (3.0-13.0); NEUTROPHILS % (AUTO) 63.2 % (40.0-77.0); NUCLEATED RED BLOOD CELLS 0.1 % (0.0-0.19); PLATELET COUNT (AUTO) 97 K/uL (130-400); RED BLOOD CELL COUNT(AUTO) 3.19 MIL/uL (4.50-6.20); RED CELL DISTRIBUTION WIDTH 13.6 % (11.0-15.5); WHITE BLOOD COUNT (AUTO) 3.3 K/uL (4.8-10.8)
[2019-06-12 10:00] LABS: INR 1.15 (0.85-1.15); PARTIAL THROMBOPLASTIN TIME 32.4 SEC (26.3-35.5)
[2019-06-12 10:04] LABS: ALBUMIN 2.8 g/dL (3.5-5.0); BILIRUBIN,TOTAL 0.6 mg/dL (0.2-1.0); MAGNESIUM 2.6 mg/dL (1.80-2.40); POTASSIUM 3.4 mmol/L (3.5-5.1); TOTAL PROTEIN, SERUM 7.3 g/dL (6.0-8.3)
[2019-06-12] MEDS ORDERED: LACTULOSE 20 GM/30 ML UDCUP ONE (10:29)
[2019-06-12] MEDS ORDERED: OCTYL 2-CYANOACRYLATE 1 EACH TP ONE (10:29)
== END 2019-06-12 11:16 | disposition home or self-care (01) ==
LOC: EDH 09:20
DX: S01.81XA Laceration without foreign body of other part of head, initial encounter (principal); E72.20 Disorder of urea cycle metabolism, unspecified; G40.909 Epilepsy, unspecified, not intractable, without status epilepticus; N18.6 End stage renal disease; Z99.2 Dependence on renal dialysis; Z88.0 Allergy status to penicillin; Z91.041 Radiographic dye allergy status; W22.8XXA Striking against or struck by other objects, initial encounter; Y93.89 Activity, other specified; Y92.89 Other specified places as the place of occurrence of the external cause; Y99.8 Other external cause status
CPT/HCPCS: 12011; 36415; 71045; 80053; 80177; 82140; 83735; 85025; 85610; 85730; 90471; 90714; 93005

== ENCOUNTER 2019-07-11 05:28 | Emergency (ER) | payer MEDICARE ==
[~2019-07-11 05:28] MED LIST changes: +ACET-66 PO; +LEVO250T59 PO
== END 2019-07-11 06:14 | disposition home or self-care (01) ==
LOC: EDH 05:28
DX: G89.29 Other chronic pain (principal); M54.5 Low back pain; N18.6 End stage renal disease; Z99.2 Dependence on renal dialysis; Z88.0 Allergy status to penicillin; Z91.041 Radiographic dye allergy status; Z87.891 Personal history of nicotine dependence

== ENCOUNTER 2019-07-28 21:57 | Emergency (ER) | payer MEDICARE ==
[~2019-07-28 21:57] MED LIST changes: -LEVO250T59 PO
[2019-07-28] MEDS ORDERED: CLONIDINE HCL 0.1 MG TABLET ONE (22:18)
[2019-07-28 22:25] LABS: BASOPHILS % (AUTO) 1.1 % (0.0-5.0); EOSINOPHILS % (AUTO) 10.9 % (0.0-8.0); HEMATOCRIT 25.9 % (42-54); LYMPHOCYTES % (AUTO) 22.3 % (21.0-51.0); MEAN CORPUSCULAR HEMOGLOBIN 29.7 pg (27.0-33.0); MEAN CORPUSCULAR HGB CONC 32.8 g/dL (32.0-36.0); MEAN CORPUSCULAR VOLUME 90.6 fL (79-99); MONOCYTES % (AUTO) 14.9 % (3.0-13.0); NEUTROPHILS % (AUTO) 50.5 % (40.0-77.0); PLATELET COUNT (AUTO) 92 K/uL (130-400); RED BLOOD CELL COUNT(AUTO) 2.86 MIL/uL (4.50-6.20); WHITE BLOOD COUNT (AUTO) 3.5 K/uL (4.8-10.8)
[2019-07-28 22:38] LABS: ALBUMIN 2.9 g/dL (3.5-5.0); BILIRUBIN,TOTAL 0.6 mg/dL (0.2-1.0); TOTAL PROTEIN, SERUM 7.1 g/dL (6.0-8.3)
[2019-07-28 22:39] LABS: ACETAMINOPHEN < 1 mcg/mL (10-29); SALICYLATE < 2.8 mg/dL (2.8-20.0)
[2019-07-28] MEDS ORDERED: LORAZEPAM 0.5 MG TABLET ONE (22:40)
[2019-07-28 22:41] LABS: AMPHET/METH SCREEN,URINE NEGATIVE (NEGATIVE); BARBITURATE SCREEN, URINE NEGATIVE (NEGATIVE); BENZODIAZEPINES SCREEN,URINE NEGATIVE (NEGATIVE); CANNABINOID SCREEN,URINE NEGATIVE (NEGATIVE); COCAINE SCREEN,URINE POSITIVE (NEGATIVE); OPIATE SCREEN,URINE NEGATIVE (NEGATIVE); PHENCYCLIDINE SCREEN,URINE NEGATIVE (NEGATIVE)
[2019-07-28 22:43] LABS: CREATININE 16.3 mg/dL (0.5-1.5)
[2019-07-28] MEDS ORDERED: LACTULOSE 20 GM/30 ML UDCUP ONE (22:52)
== END 2019-07-29 00:53 | disposition home or self-care (01) ==
LOC: EDH 21:57
DX: N18.6 End stage renal disease (principal); F14.10 Cocaine abuse, uncomplicated; K74.60 Unspecified cirrhosis of liver; F41.9 Anxiety disorder, unspecified; F32.9 Major depressive disorder, single episode, unspecified; Z76.5 Malingerer [conscious simulation]; Z99.2 Dependence on renal dialysis; Z91.041 Radiographic dye allergy status; Z88.0 Allergy status to penicillin
CPT/HCPCS: 36415; 80053; 80305; 82140; 85025; 93005; G0480; G0481

== ENCOUNTER 2019-07-29 05:04 | Emergency (ER) | payer MEDICARE ==
[2019-07-29] MEDS ORDERED: HYDRALAZINE HCL 25 MG TABLET ONE (05:28)
== END 2019-07-29 07:49 | disposition home or self-care (01) ==
LOC: EDH 05:04
DX: F32.9 Major depressive disorder, single episode, unspecified (principal); F14.10 Cocaine abuse, uncomplicated; K74.60 Unspecified cirrhosis of liver; N18.6 End stage renal disease; Z98.890 Other specified postprocedural states; Z88.0 Allergy status to penicillin; Z91.041 Radiographic dye allergy status